=== PATIENT | female | born 1995 | race Caucasian/White ===

== ENCOUNTER → 2017-03-04 | Outpatient (CLI) | payer MEDICAID, OTHER ==
[~2017-03-04] MED LIST: ACHD5005 PO; ALPR0.25 PO; BCP; IBUP-16 PO; METF1000 PO; SERT50TA2 PO
--- NOTE | 2017-03-04 11:59 | Diagnostic Imaging Report ---
PROCEDURE: US OB SINGLE FETUS <14 WKS. TECHNIQUE: Multiple Real-time grayscale images were obtained over the gravid uterus in various projections. INDICATION: Dating. COMPARISON: No recent examinations are available for comparison. FINDINGS: There is a gestational sac within the uterus containing a single live embryo. Embryonic heart motion is noted and a rate of 135 BPM was recorded. The crown/rump length suggests the estimated gestational age is 7 weeks 1 day plus/minus 1/2 week. There are no obvious embryonic abnormalities identified. The amniotic fluid volume is within normal limits. At this time, it is not certain where the placenta will develop. The ovaries are not identified. There is no pelvic mass or free fluid collection noted. IMPRESSION: 1. There is a gestational sac within the uterus containing a single live embryo of approximately 7 weeks 1 day gestation plus/minus 1/2 week. The EDC is 10/20/2017. 2. There are no obvious embryonic abnormalities identified. 3. If a more sensitive evaluation of the anatomy is desired, then a short-term (12-14 week) followup OB ultrasound exam should be obtained. Dictated by: Dictated on workstation # [id number]
== END ==
LOC: RAD 10:05
PROVIDERS: ATTEND Family Medicine
DX: Z36.89 Encounter for other specified antenatal screening (principal); Z3A.01 Less than 8 weeks gestation of pregnancy
CPT/HCPCS: 76801

== ENCOUNTER → 2017-03-31 | Outpatient (CLI) | payer MEDICAID ==
--- NOTE | 2017-03-31 11:51 | Diagnostic Imaging Report ---
PROCEDURE: US OB SINGLE FETUS <14 WKS. TECHNIQUE: Multiple real-time grayscale images were obtained over the gravid uterus in various projections. INDICATION: Vaginal bleeding and threatened . FINDINGS: There is a somewhat misshapen gestational sac with the pole measuring 1.36 cm. This correlates with gestational age of 7 weeks 5 days. There are however no detectable heart tones. There are no adnexal masses. There is no free pelvic fluid. IMPRESSION: Findings compatible with intrauterine demise. Dictated on workstation # [id number]
== END ==
LOC: RAD 09:57
PROVIDERS: ATTEND Family Medicine
DX: O20.0 Threatened abortion (principal)
CPT/HCPCS: 76801

== ENCOUNTER 2017-04-30 22:50 | Emergency (ER) | payer MEDICAID ==
[~2017-04-30] VITALS: Ht 170.2 cm; Wt 65.8 kg
--- OUTSIDE RECORDS SUMMARY | 2017-04-30 22:55 | XMS REPORT | Continuity of Care Document ---
Author Author [employer] Organization [facility] Address Unknown Phone Unavailable Care Team Providers Care Flatwork Finisher Name Role Phone [employer] Unavailable Unavailable Problems Medications Allergies, Adverse Reactions, Alerts Immunizations Results Vital Signs Encounters Location Location Details Encounter Type Encounter Number Reason For Visit Attending Provider ADM Date DC Date Status Source OUTPATIENT [id number] JUSTICE VARGAS 05/12/20132013 Active [facility] Procedures Plan of Care Social History Assessment and Plan Family History Advance Directives Functional Status
--- OUTSIDE RECORDS SUMMARY | 2017-04-30 22:55 | XMS REPORT | Clinical Summary ---
Author Author [facility] Organization [facility] Address Unknown Phone Unavailable Care Team Providers Care Fabric Worker Foreman Name Role Phone Vickie Reyes MD Unavailable Unavailable Phong Osorio MD Unavailable José Miguel Blue MD PCP Valerio Bernardo MD Unavailable Glenna Menezes Unavailable Source Comments Some departments are not documenting in the electronic medical record. If you do not see the information that you expected, contact Release of Information in the Health Information Management department at [phone] for further assistance in locating additional records.[facility] Allergies Active Allergy Reactions Severity Noted Date Comments Penicillin G SWOLLEN TONGUE, EDEMA 12/25/2011 Penicillin class Current Medications Prescription Sig. Disp. Refills Start End Date Status Date norgestimate-ethinyl Take 1 Tab by mouth 84 Tab 3 05/07/19 Active estradiol(+) (ORTHO daily. 13 TRI-[id number]; RHRIPXNQ21; [id number]; [id number]) tabletIndications: PCOS (polycystic ovarian syndrome) metFORMIN-XR(+) Take 4 Tabs by mouth 90 Tab 11 05/07/19 Active (GLUCOPHAGE XR) 500 mg daily with dinner. All 13 tabletIndications: PCOS meds after dinner. (polycystic ovarian syndrome) spironolactone Take 1 Tab by mouth 90 Tab 3 08/06/19 Active (ALDACTONE) 50 mg daily. 13 tabletIndications: HTN (hypertension) ERGOCALCIFEROL (VITAMIN Take by mouth daily. Active D2) (VITAMIN D PO) OMEPRAZOLE (PRILOSEC PO) Take 40 mg by mouth Active daily. Active Problems Problem Noted Date Hypermobility syndrome 05/12/2013 Obesity 11/06/2012 Chronic headaches 11/06/2012 Overview: Likely related to migraine, defer to PCP. Anxiety 11/06/2012 Overview: For 4 years. H/o panic attacks (x3) 3 years ago. Dizziness 11/06/2012 Overview: For 1 year. Palpitations 11/04/2012 Vitamin D deficiency 08/05/2012 Overview: 12/25/11: level was 19.8; only took supplement for 2 months of 2,000 IU PCOS (polycystic ovarian syndrome) 05/06/2012 Overview: History of hirsutism, weight gain, irregular period, and fatigue. Currently on Metformin, OCP (04/2012), started on spirolactone (07/2012). HTN (hypertension) 12/25/2011 Overview: Currently being followed by Dr. Murphy; referral placed. Family History Medical History Relation Name Comments Arthritis Maternal Grandmother Asthma Maternal Grandmother Fibromyalgia Maternal Grandmother High Cholesterol Maternal Grandmother Diabetes Mother Hypertension Mother Urolithiasis Mother Diabetes Other Maternal great grand father. Heart Disease Other Maternal great grand parents. Hypertension Other Both maternal and paternal great grand parents. Cancer Paternal Grandmother Hypoglycemia Paternal Grandmother Relation Name Status Comments Maternal Grandmother Mother Other Paternal Grandmother Social History Tobacco Use Types Packs/Day Years Used Date Never Smoker Smokeless Tobacco: Never Used Alcohol Use Drinks/Week oz/Week Comments No Sex Assigned at Date Recorded Not on file Last Filed Vital Signs Vital Sign Reading Time Taken Blood Pressure 122/79 05/12/2013 1:18 PM CDT Pulse 92 05/12/2013 1:18 PM CDT Temperature 36.6 C (97.9 F) 05/12/2013 1:18 PM CDT Respiratory Rate 20 05/12/2013 1:18 PM CDT Oxygen Saturation - - Inhaled Oxygen - - Concentration Weight 84.4 kg (186 lb) 05/12/2013 1:18 PM CDT Height 171 cm (5' 7.32") 05/12/2013 1:18 PM CDT Body Mass Index 28.85 05/12/2013 1:18 PM CDT Plan of Treatment Health Maintenance Due Date Last Done Comments PHYSICAL (COMPREHENSIVE) 2001 EXAM HPV VACCINES (1 of 3 - 2005 Female 3 Dose Series) PERTUSSIS VACCINE 2005 HIV SCREENING 2009 TETANUS VACCINE 07/17/2011 CERVICAL CANCER SCREENING 07/17/2015 INFLUENZA VACCINE 11/16/2017 Results Not on filefrom Last 3 Months
--- OUTSIDE RECORDS SUMMARY | 2017-04-30 22:56 | XMS REPORT | Continuity of Care Document ---
Author Author [facility] Organization [facility] Address Unknown Phone Unavailable Allergies Active Description Code Type Severity Reaction Onset Reported/Identified Relationship to Patient Clinical Status Yes PENICILLIN PENICILLIN Unknown N/A 12/05/2011 Medications There is no data. Problems Date Dx Coded Attending Type Code Diagnosis Diagnosed By 12/21/2014 Ot 530.81 12/21/2014 Ot 790.6 12/21/2014 Ot 255.8 12/21/2014 Ot 704.1 12/21/2014 Ot 401.9 12/21/2014 Ot 704.1 12/21/2014 RODERICK HENRY MD Ot 401.9 12/21/2014 RODERICK HENRY MD Ot 785.1 12/21/2014 Ot 530.81 12/21/2014 Ot 790.6 12/21/2014 Ot 255.8 12/21/2014 Ot 704.1 12/21/2014 Ot 401.9 12/21/2014 Ot 704.1 12/21/2014 RODERICK HENRY MD Ot 401.9 12/21/2014 RODERICK HENRY MD Ot 785.1 12/22/2014 Ot 530.81 12/22/2014 Ot 790.6 12/22/2014 Ot 255.8 12/22/2014 Ot 704.1 12/22/2014 Ot 401.9 12/22/2014 Ot 704.1 12/22/2014 RODERICK HENRY MD Ot 401.9 12/22/2014 RODERICK HENRY MD Ot 785.1 12/22/2014 ROBIN CUNNINGHAM DO Ot K66.1 12/22/2014 ROBIN CUNNINGHAM DO Ot N83.20 03/03/2017 Ot 790.6 ABN BLOOD CHEMISTRY NEC 03/03/2017 Ot 255.8 ADRENAL DISORDER NEC 03/03/2017 Ot 704.1 HIRSUTISM 03/03/2017 Ot 401.9 HYPERTENSION NOS 03/03/2017 Ot 704.1 HIRSUTISM 03/03/2017 RODERICK HENRY MD Ot 401.9 HYPERTENSION NOS 03/03/2017 RODERICK HENRY MD Ot 785.1 PALPITATIONS 03/04/2017 Ot 790.6 ABN BLOOD CHEMISTRY NEC 03/04/2017 Ot 255.8 ADRENAL DISORDER NEC 03/04/2017 Ot 704.1 HIRSUTISM 03/04/2017 Ot 401.9 HYPERTENSION NOS 03/04/2017 Ot 704.1 HIRSUTISM 03/04/2017 RODERICK HENRY MD Ot 401.9 HYPERTENSION NOS 03/04/2017 RODERICK HENRY MD Ot 785.1 PALPITATIONS 03/05/2017 CHASE AMEZQUITA MD Ot Z36.89 ENCOUNTER FOR OTHER SPECIFIED 03/05/2017 CHASE AMEZQUITA MD Ot Z3A.01 LESS THAN 8 WEEKS GESTATION OF 03/17/2017 CHASE AMEZQUITA MD Ot Z36.89 ENCOUNTER FOR OTHER SPECIFIED 03/17/2017 CHASE AMEZQUITA MD Ot Z3A.01 LESS THAN 8 WEEKS GESTATION OF 03/31/2017 Ot 790.6 ABN BLOOD CHEMISTRY NEC 03/31/2017 Ot 255.8 ADRENAL DISORDER NEC 03/31/2017 Ot 704.1 HIRSUTISM 03/31/2017 Ot 401.9 HYPERTENSION NOS 03/31/2017 Ot 704.1 HIRSUTISM 03/31/2017 RODERICK HENRY MD Ot 401.9 HYPERTENSION NOS 03/31/2017 RODERICK HENRY MD Ot 785.1 PALPITATIONS 03/31/2017 CHASE AMEZQUITA MD Ot Z36.89 ENCOUNTER FOR OTHER SPECIFIED 03/31/2017 CHASE AMEZQUITA MD Ot Z3A.01 LESS THAN 8 WEEKS GESTATION OF 04/01/2017 CHASE AMEZQUITA MD Ot O20.0 THREATENED 04/01/2017 CHASE AMEZQUITA MD Ot O20.0 THREATENED 04/14/2017 CHASE AMEZQUITA MD Ot O20.0 THREATENED Procedures There is no data. Results There is no data. Encounters ACCT No. Visit Date/Time Discharge Status Pt. Type Provider Facility Loc./Unit Complaint [id number] 03/31/2017 09:57:00 03/31/2017 23:59:59 CLS Outpatient CHASE AMEZQUITA MD [facility] RAD O20.0 THREATENED MISCARRIAGE [id number] 03/04/2017 10:05:00 03/04/2017 23:59:59 CLS Outpatient CHASE AMEZQUITA MD [facility] RAD Z34.00 NORMAL [id number] 12/21/2014 17:01:00 12/22/2014 15:10:00 DIS Outpatient ROBIN CUNNINGHAM DO [facility] SDC [id number] 08/06/2012 12:31:00 08/06/2012 23:59:59 CLS Outpatient RODERICK HENRY MD [facility] CARD PALPITATIONS [id number] 04/30/2017 22:51:00 ACT Emergency MYRTLE MONTIEL MD [facility] ER VAGINAL BLEEDING [id number] 12/28/2011 12:19:00 Document Registration [id number] 12/05/2011 07:42:00 Document Registration [id number] 12/04/2011 12:47:00 Document Registration [id number] 05/27/2010 07:35:00 Document Registration
[2017-04-30 23:14] LABS: BASOPHILS # (AUTO) 0.1 10^3/uL (0.0-0.1); BASOPHILS % (AUTO) 1 % (0-10); EOSINOPHILS # (AUTO) 0.2 10^3/uL (0.0-0.3); EOSINOPHILS % (AUTO) 2 % (0-10); HEMATOCRIT 35 % (35-52); HEMOGLOBIN 12.1 G/DL (11.5-16.0); LYMPHOCYTES # (AUTO) 2.9 X 10^3 (1.0-4.0); LYMPHOCYTES % (AUTO) 29 % (12-44); MEAN CORPUSCULAR HEMOGLOBIN 31 PG (25-34); MEAN CORPUSCULAR HGB CONC 34 G/DL (32-36); MEAN CORPUSCULAR VOLUME 90 FL (80-99); MEAN PLATELET VOLUME 12.7 FL (7.4-10.4); MONOCYTES # (AUTO) 0.7 X 10^3 (0.0-1.0); MONOCYTES % (AUTO) 7 % (0-12); NEUTROPHILS # (AUTO) 6.3 X 10^3 (1.8-7.8); NEUTROPHILS % (AUTO) 62 % (42-75); PLATELET COUNT 175 10^3/uL (130-400); RED BLOOD COUNT 3.93 10^6/uL (4.35-5.85); WHITE BLOOD COUNT 10.1 10^3/uL (4.3-11.0)
[2017-04-30] MEDS ORDERED: NS IV 1000 ML 1,000 ML IV SCH (23:39)
[2017-05-01 00:06] LABS: BUN/CREATININE RATIO 11; CALCIUM 9.4 MG/DL (8.5-10.1); CARBON DIOXIDE 23 MMOL/L (21-32); CHLORIDE 106 MMOL/L (98-107); CREATININE SERUM 0.81 MG/DL (0.60-1.30); GFR ESTIMATED > 60; GLUCOSE 98 MG/DL (70-105); POTASSIUM 3.4 MMOL/L (3.6-5.0); SODIUM 139 MMOL/L (135-145)
[2017-05-01] MEDS ORDERED: MISOPROSTOL 100 MCG (CYTOTEC) TAB ONE (02:21)
[2017-05-01] MEDS ORDERED: MISOPROSTOL 100 MCG (CYTOTEC) TAB PO ONE (02:30)
--- NOTE | 2017-05-01 02:31 | ED GU-Female ---
General Chief Complaint: -Female Stated Complaint: VAGINAL BLEEDING Nursing Triage Note: PT TO ED 9 W/ C/O HEAVY VAGINAL BLEEDING ONSET LAST NOC, WORSE THIS EVENING. REPORTS SHE HAD A MISCARRIAGE X3WKS AGO, "TOOK THE MEDICINE", DENIES D&C. STATES SHE HAD BLEEDING AFTER BUT NOT LIKE HER PRESENT C/O. Nursing Sepsis Screen: No Definite Risk Source: patient Exam Limitations: no limitations History of Present Illness Date Seen by Provider: Apr 30, 2017 Time Seen by Provider: 23:08 Initial Comments This 21-year-old young lady presents to the emergency room with persistent bleeding after having a miscarriage. She was diagnosed with demise on March 31. She took a single dose of Cytotec vaginally and passed a large amount of clot afterwards. She has continued to bleed almost every day since then, taking a break from bleeding for only 1 or 2 days during that time. Tonight her bleeding became more intense and she developed lightheadedness upon standing. She is noted to be tachycardic as well. She is afebrile and denies any significant pain. She had a little bit of cramping earlier when the bleeding was heavier. Allergies and Home Medications Allergies Uncoded Allergies: PENICILLIN (Allergy, Unknown, 12/05/11) Home Medications Alprazolam 0.25 Mg Tablet, 0.25 MG PO NEEDED, (Reported) Hydrocodone Bit/Acetaminophen 1 Each Tablet, 1 TAB PO Q4H PRN for pain Prescribed by: ROBIN CUNNINGHAM on 12/22/14 1141 Ibuprofen 200 Mg Tablet, 600 MG PO Q6H PRN for PAIN Prescribed by: ROBIN CUNNINGHAM on 12/22/14 1141 Metformin HCl 1,000 Mg Tablet, 2,000 MG PO DAILY, (Reported) Misoprostol 200 Mcg Tablet, 400 MCG PO Q4H Repeat doses every 4 hours until resolution of bleeding Prescribed by: MYRTLE CRUZ on 05/01/17 0232 Sertraline HCl 50 Mg Tablet, 50 MG PO DAILY, (Reported) [Bcp] , DAILY, (Reported) Patient Home Medication List Home Medication List Reviewed: Yes Constitutional: no symptoms reported EENTM: no symptoms reported Respiratory: no symptoms reported Cardiovascular: see HPI Gastrointestinal: no symptoms reported Genitourinary: see HPI : No Musculoskeletal: no symptoms reported Skin: no symptoms reported Psychiatric/Neurological: No Symptoms Reported Endocrine: No Symptoms Reported Past Qslikcp-Ndkknp-Tirsju Hx Patient Social History Alcohol Use: Occasionally Uses Recreational Drug Use: Yes (MARIJUANA X1WK AGO) Smoking Status: Current Everyday Smoker Type Used: Cigarettes Recent Foreign Travel: No Contact w/Someone Who Travel: No Recent Infectious Disease Expo: No Physical Abuse: No Sexual Abuse: No Mistreated: No Fear: No Surgeries History of Surgeries: Yes (UMBIL HERNIA) Surgeries: Abdominal, Orthopedic (right shoulder labral repair) Respiratory History of Respiratory Disorde: No Cardiovascular History of Cardiac Disorders: No Neurological History of Neurological Disord: No Reproductive System : No Hx : 1 Hx Para: 0 Hx Total # of Abortions (Spona: 1 Hx Reproductive Disorders: Yes Female Reproductive Disorders: Polycystic Ovarian Dis Genitourinary History of Genitourinary Disor: No Gastrointestinal History of Gastrointestinal Di: No Musculoskeletal History of Musculoskeletal Dis: No Endocrine History of Endocrine Disorders: No HEENT History of HEENT Disorders: No Cancer History of Cancer: No Psychosocial History of Psychiatric Problem: Yes Behavioral Health Disorders: Anxiety, Depression Suicide Risk Score: 0 Integumentary History of Skin or Integumenta: No Blood Transfusions History of Blood Disorders: No Family Medical History Significant Family History: No Pertinent Family Hx Physical Exam Vital Signs Vital Signs - First Documented 04/30/17 22:53 Temp 97.7 Pulse 116 Resp 20 B/P (MAP) 129/88 (102) Pulse Ox 99 O2 Delivery Room Air Capillary Refill : Less Than 3 Seconds General Appearance: WD/WN, no apparent distress HEENT: normal ENT inspection Cardiovascular: no edema, no murmur, tachycardia Respiratory: lungs clear, normal breath sounds, no respiratory distress, no accessory muscle use Gastrointestinal: normal bowel sounds, non tender, soft Extremities: normal inspection, no pedal edema Neurologic/Psychiatric: 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-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 as tested, no motor/sensory deficits, alert, normal mood/affect, oriented x 3 Skin: normal color, warm/dry Progress/Results/Core Measures Suspected Sepsis Recent Fever Within 48 Hours: No Infection Criteria Present: None New/Unexplained Altered Menta: No Sepsis Screen: No Definite Risk Sepsis Diagnosis: SIRS Temperature:97.7 Pulse: 116 Respiratory Rate: 20 Laboratory Tests 04/30/17 23:07: White Blood Count 10.1 Blood Pressure 129 /88 Mean: 102 Laboratory Tests 04/30/17 23:07: Creatinine 0.81, Platelet Count 175 Results/Orders Lab Results Laboratory Tests Test 04/30/17 23:07 Range/Units White Blood Count 10.1 4.3-11.0 10^3/uL Red Blood Count 3.93 L 4.35-5.85 10^6/uL Hemoglobin 12.1 11.5-16.0 G/DL Hematocrit 35 35-52 % Mean Corpuscular Volume 90 80-99 FL Mean Corpuscular Hemoglobin 31 25-34 PG Mean Corpuscular Hemoglobin Concent 34 32-36 G/DL Red Cell Distribution Width 14.0 10.0-14.5 % Platelet Count 175 130-400 10^3/uL Mean Platelet Volume 12.7 H 7.4-10.4 FL Neutrophils (%) (Auto) 62 42-75 % Lymphocytes (%) (Auto) 29 12-44 % Monocytes (%) (Auto) 7 0-12 % Eosinophils (%) (Auto) 2 0-10 % Basophils (%) (Auto) 1 0-10 % Neutrophils # (Auto) 6.3 1.8-7.8 X 10^3 Lymphocytes # (Auto) 2.9 1.0-4.0 X 10^3 Monocytes # (Auto) 0.7 0.0-1.0 X 10^3 Eosinophils # (Auto) 0.2 0.0-0.3 10^3/uL Basophils # (Auto) 0.1 0.0-0.1 10^3/uL Sodium Level 139 135-145 MMOL/L Potassium Level 3.4 L 3.6-5.0 MMOL/L Chloride Level 106 98-107 MMOL/L Carbon Dioxide Level 23 21-32 MMOL/L Anion Gap 10 5-14 MMOL/L Blood Urea Nitrogen 9 7-18 MG/DL Creatinine 0.81 0.60-1.30 MG/DL Estimat Glomerular Filtration Rate > 60 BUN/Creatinine Ratio 11 Glucose Level 98 70-105 MG/DL Calcium Level 9.4 8.5-10.1 MG/DL Human Chorionic Gonadotropin, Quant 116 H <5 MIU/ML My Orders Orders - MYRTLE MONTIEL MD Cbc With Automated Diff (04/30/17 23:08) Hcg,Quantitative (04/30/17 23:08) Saline Lock/Iv-Start (04/30/17 23:39) Ns Iv 1000 Ml (Sodium Chloride 0.9%) (04/30/17 23:39) Basic Metabolic Panel (04/30/17 23:43) Us Ob Transvaginal 78827 (05/01/17 ) Misoprostol Tablet (Cytotec Tablet) (05/01/17 02:30) Misoprostol Tablet (Cytotec Tablet) (05/01/17 02:21) Medications Given in ED Current Medications Medications Dose Ordered Sig/Maura Route Start Time Stop Time Status Last Admin Dose Admin Misoprostol 400 mcg ONCE ONCE PO 05/01/17 02:30 05/01/17 02:32 DC 05/01/17 02:30 400 MCG Vital Signs/I&O Vital Sign - Last 12Hours 04/30/17 22:53 Temp 97.7 Pulse 116 Resp 20 B/P (MAP) 129/88 (102) Pulse Ox 99 O2 Delivery Room Air Capillary Refill : Less Than 3 Seconds Blood Pressure Mean: 102 Progress Note : Progress Note Patient received a liter of IV fluid. Dizziness resolved. Labs were reviewed and patient was found to have a normal hemoglobin. There is no leukocytosis. Ultrasound revealed heterogeneous debris and fluid within the endometrial no. Consider retained products of conception and/or blood products. There was also 4.8 cm right ovarian cyst. Recommendation is for follow-up in 6-8 weeks. Patient had minimal hCG detectable. After discussion with Dr. Cobb, Dr. CUNNINGHAM , and patient, a conservative approach was selected with serial treatments of Cytotec 400 g every 4 hours up to 4 doses until resolution. If symptoms worsen or Cytotec does not resolve the problem, then D&C may be necessary. Patient reported little bleeding during her ER stay. The first dose of Cytotec was administered in the ER. Departure Impression Impression: Primary Impression: Retained products of conception Disposition: HOME, SELF-CARE Condition: Improved Departure-Patient Inst. Decision time for Depature: 02:15 Referrals: CHASE AMEZQUITA MD (PCP/Family) Primary Care Physician Patient Instructions: Miscarriage Add. Discharge Instructions: Drink plenty of clear liquids. Use your medication as prescribed. Return to care if symptoms are worsening. You may take Tylenol up to 1000 mg every 6 hours as needed for pain. Schedule follow-up appointment with Dr. Amezquita for Thursday. Contact Dr. Amezquita's staff at [facility] this afternoon to provide an update. If your symptoms become severe, contact Dr. Amezquita or present back to the emergency room. D&C may become necessary at that point. All discharge instructions reviewed with patient and/or family. Voiced understanding. Scripts Misoprostol (Cytotec) 200 Mcg Tablet 400 MCG PO Q4H, #8 TAB Repeat doses every 4 hours until resolution of bleeding Prov: MYRTLE MONTIEL MD 05/01/17 Copy Copies To 1: CHASE AMEZQUITA MD Copies To 2: ROBIN CUNNINGHAM JOSHUA T MD May 01, 2017 02:31
[2017-05-01] MEDS ORDERED: MISO200T PO (02:32)
[2017-05-01 02:35] VITALS: BP 107/89
--- NOTE | 2017-05-01 07:14 | Diagnostic Imaging Report ---
INDICATION: Slightly elevated serum beta-hCG. Recent miscarriage one month ago. Continued heavy bleeding. TECHNIQUE: Multiple real time casey scale sonographic images were obtained of the pelvis endovaginally. CORRELATION STUDY: None FINDINGS: UTERUS/ENDOMETRIUM: Uterus measures 7.7 x 4.5 x 5.9 cm. Endometrial thickness is 14 mm. There is heterogeneous appearance about the endometrium with what appears be debris and fluid within a mildly dilated endometrial canal. No definitive evidence for internal vascularity upon color Doppler interrogation. RIGHT OVARY: 5.5 x 4.8 cm. LEFT OVARY: 3.6 x 1.6 x 1.2 cm. 4.8 x 3.5 x 4.5 cm hypoechoic mass of the right ovary with a few internal echoes are present. Vascular flow is demonstrated to both ovaries. No significant free pelvic fluid. IMPRESSION: 1. Heterogeneous, debris and fluid within the endometrial canal. No definitive vascularity is present. However, given the overall symptoms, possibly retained products of conception and/or blood products or could give this appearance. 2. Nearly 5 cm right ovarian cyst slightly complex with perhaps some debris. Continued repeat imaging after approximately to 2 to 3 menstrual cycles would be recommended for followup. Agreement with the preliminary interpretation. Dictated by: Dictated on workstation # [id number]
== END 2017-05-01 02:35 | disposition home or self-care (01) ==
LOC: EDUNIT# 22:50 → ER 22:51
DX: O73.1 Retained portions of placenta and membranes, without hemorrhage (principal); F41.9 Anxiety disorder, unspecified; F32.9 Major depressive disorder, single episode, unspecified; F12.90 Cannabis use, unspecified, uncomplicated; F17.210 Nicotine dependence, cigarettes, uncomplicated; Z87.42 Personal history of other diseases of the female genital tract; Z87.19 Personal history of other diseases of the digestive system; Z79.84 Long term (current) use of oral hypoglycemic drugs; Z88.0 Allergy status to penicillin
CPT/HCPCS: 36415; 76817; 80048; 84702; 85025; 96360

== ENCOUNTER → 2019-02-04 | Day surgery (SDC) | payer SELFPAY ==
[2019-02-04] VITALS (7 sets, daily range): BP systolic 92–116; BP diastolic 53–68
[~2019-02-04] VITALS: Ht 170 cm; Wt 68.0 kg
[~2019-02-04] MED LIST changes: +CEFD300C3 PO; +CLIN300C11 PO; +CLINDAMYCIN 900 MG/50 ML IVPB 50 ML IV ONE; +DEXAMETHASONE 10 MG/ML (DECADRON) 1 ML VIAL ONE; +DOXY100T2 PO; +DOXYCYCLINE 100 MG (VIBRAMYCIN) TABLET PO SCH; +FERR325T18 PO; +FERROUS SULF 325 MG (IRON) TAB PO SCH; +HYDROmorphone 2 MG/ML VIAL (DILAUDID) IV ONE; +HYDROmorphone 2 MG/ML VIAL (DILAUDID) ONE; +IBUP-1780 PO; +IBUP-30 PO; +IBUPROFEN 800 MG (MOTRIN) TAB PO SCH; +KETOROLAC 30 MG/ML VIAL IVP ONE; +KETOROLAC 30 MG/ML VIAL ONE; +LIDOCAINE PF 2% 5 ML (XYLOCAINE) VIAL ONE; +METF-399 PO; -METF1000 PO; +METHYLERGONOVINE 0.2 MG/ML (METHERGINE) AMP ONE; +MIDAZOLAM 2 MG/2 ML (VERSED) VIAL ONE; +MISO200T PO; +MISOPROSTOL 100 MCG (CYTOTEC) TAB PO SCH; +NS IV 1000 ML 1,000 ML IV ONE; +NS IV 500 ML 500 ML IV SCH; +ONDANSETRON 4 MG/2 ML (SDV) Z0FRAN IVP PRN; +ONDANSETRON 4 MG/2 ML (SDV) Z0FRAN ONE; +OXYC1TAB87 PO; +OXYTOCIN (PITOCIN) 10 UNIT/ML VIAL ONE; +SEVOFLURANE (ULTANE) 15 ML INHAL SOLN ONE; +[UNRECOGNIZED DRUG - CODE] PO; +fentaNYL INJECTION 100 MCG/2 ML AMP IVP PRN; +fentaNYL INJECTION 100 MCG/2 ML AMP ONE; +oxyCODONE/APAP 5/325MG (PERCOCET 5) TABLET PO PRN; +proPOfol 200 MG/20 ML (DIPRIVAN) VIAL IV ONE
--- NOTE | 2019-02-04 16:13 | NUR ---
pt changed into gown
[2019-02-04 16:20] LABS: BASOPHILS % (AUTO) 1 % (0-10); EOSINOPHILS # (AUTO) 0.1 10^3/uL (0.0-0.3); EOSINOPHILS % (AUTO) 2 % (0-10); HEMATOCRIT 23 % (35-52); HEMOGLOBIN 7.1 G/DL (11.5-16.0); LYMPHOCYTES # (AUTO) 1.2 X 10^3 (1.0-4.0); LYMPHOCYTES % (AUTO) 28 % (12-44); MEAN CORPUSCULAR HEMOGLOBIN 25 PG (25-34); MEAN CORPUSCULAR HGB CONC 31 G/DL (32-36); MEAN CORPUSCULAR VOLUME 80 FL (80-99); MEAN PLATELET VOLUME 11.5 FL (7.4-10.4); MONOCYTES # (AUTO) 0.5 X 10^3 (0.0-1.0); MONOCYTES % (AUTO) 12 % (0-12); NEUTROPHILS # (AUTO) 2.4 X 10^3 (1.8-7.8); NEUTROPHILS % (AUTO) 57 % (42-75); PLATELET COUNT 322 10^3/uL (130-400); RED CELL DISTRIBUTION WIDTH 16.1 % (10.0-14.5); WHITE BLOOD COUNT 4.2 10^3/uL (4.3-11.0)
[2019-02-04 16:33] LABS: ALANINE AMINOTRANSFERASE 14 U/L (0-55); ALBUMIN 4.8 GM/DL (3.2-4.5); ALKALINE PHOSPHATASE 42 U/L (40-136); BILIRUBIN,TOTAL 0.5 MG/DL (0.1-1.0); BUN/CREATININE RATIO 15; CALCIUM 9.2 MG/DL (8.5-10.1); CARBON DIOXIDE 22 MMOL/L (21-32); CHLORIDE 107 MMOL/L (98-107); CREATININE SERUM 0.66 MG/DL (0.60-1.30); GFR ESTIMATED > 60; GLUCOSE 105 MG/DL (70-105); POTASSIUM 3.7 MMOL/L (3.6-5.0); SODIUM 138 MMOL/L (135-145); TOTAL PROTEIN 7.6 GM/DL (6.4-8.2)
--- NOTE | 2019-02-04 17:26 | Diagnostic Imaging Report ---
INDICATION: Decreased hemoglobin, vaginal bleeding, recent elective six weeks ago, complains of bleeding since that intervention. FINDINGS: The endometrium is heterogeneous, thickened at 1.2 cm and shows abnormal color Doppler blood flow at its fundal aspect. Component of retained vascularized product of conception could not be excluded. The myometrium is grossly unremarkable. Small amount of free fluid adjacent to the right ovary is present. The right ovary containing a 4.2 cm complex cystic nodule without internal vascularity, likely a hemorrhagic cyst. The left adnexa appeared normal. There was no evidence for adnexal torsion. IMPRESSION: Heterogeneous, thickened endometrium vascularized at its fundal aspect, given the history, suspicious for a component of vascularized retained product. Complex right ovarian cyst of 4.2 cm, likely hemorrhagic but given its size, warranting follow up. No evidence for adnexal torsion. Small-volume simple free fluid. Dictated by: Dictated on workstation # [id number]
--- NOTE | 2019-02-04 17:32 | ED GU-Female ---
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 PT DOES REPORT SHE HAS BEEN SEXUALLY ACTIVE SINCE. PT REPORTS SHE WAS SENT TO THIS FACILITY FROM [facility] Nursing Sepsis Screen: No Definite Risk Source: patient, other (significant other) Exam Limitations: no limitations History of Present Illness Date Seen by Provider: Feb 04, 2019 Time Seen by Provider: 17:32 Initial Comments 23-year-old female patient presents from [facility] with complaints of vaginal bleeding for 6 weeks. Patient was found to have a hemoglobin of 7.2 and a positive test at [facility] today. Patient had an elective with Cytotec at 7 weeks gestation in [place], [place]. Patient does report being sexually active since the . Denies abdominal pain, fever, chills. Patient has not had solids since yesterday and last liquids at 1400 today. This is the patient's 2nd elective . Timing/Duration: constant, other (6 weeks) Severity/Quality: moderate Location: vaginal Radiation: none Activities at Onset: other (elective ) Prior Genitourinary Problems: none Sexual [place] History: less than 2 months ago, single partner Allergies and Home Medications Allergies Uncoded Allergies: PENICILLIN (Allergy, Unknown, 12/05/11) Home Medications Alprazolam 0.25 Mg Tablet, 0.25 MG PO NEEDED, (Reported) Hydrocodone Bit/Acetaminophen 1 Each Tablet, 1 TAB PO Q4H PRN for pain Prescribed by: ROBIN CUNNINGHAM on 12/22/14 1141 Ibuprofen 200 Mg Tablet, 600 MG PO Q6H PRN for PAIN Prescribed by: ROBIN CUNNINGHAM on 12/22/14 1141 Metformin HCl 1,000 Mg Tablet, 2,000 MG PO DAILY, (Reported) Misoprostol 200 Mcg Tablet, 400 MCG PO Q4H Repeat doses every 4 hours until resolution of bleeding Prescribed by: MYRTLE CRUZ on 05/01/17 0232 Sertraline HCl 50 Mg Tablet, 50 MG PO DAILY, (Reported) [Bcp] , DAILY, (Reported) Patient Home Medication List Home Medication List Reviewed: Yes Review of Systems Review of Systems Constitutional: No chills, No fever, No malaise, No weakness; other (fatigue) EENTM: no symptoms reported Respiratory: No cough, No orthopnea, No short of breath, No wheezing Cardiovascular: No chest pain, No palpitations, No syncope Gastrointestinal: No abdominal pain, No constipation, No diarrhea, No jaundice; loss of appetite; No melena, No nausea, No vomiting Genitourinary: see HPI; denies dysuria, denies frequency, denies flank pain, denies hematuria, denies pain; other (vaginal bleeding) Musculoskeletal: No back pain Skin: no symptoms reported Psychiatric/Neurological: No Symptoms Reported Hematologic/Lymphatic: No Symptoms Reported All Other Systemes Reviewed Negative Unless Noted: Yes (Negative excepted noted.) Past Mzdnwjq-Qajlia-Yikbky Hx Past Med/Social Hx: Reviewed Nursing Past Med/Soc Hx Patient Social History Alcohol Use: Occasionally Uses Recreational Drug Use: Yes Drug of Choice: MARIJUANA Smoking Status: Current Everyday Smoker Type Used: Electronic/Vapor Recent Foreign Travel: No Contact w/Someone Who Travel: No Recent Infectious Disease Expo: No Past Medical History Surgeries: Yes (UMBIL HERNIA) Abdominal, Orthopedic Respiratory: No Cardiac: No Neurological: No Hx : 2 Hx Para: 0 Hx Total # of Abortions (Sp): 2 (elective abortions) Reproductive Disorders: Yes Female Reproductive Disorders: Polycystic Ovarian Dis Genitourinary: No Gastrointestinal: No Musculoskeletal: No Endocrine: No HEENT: No Cancer: No Psychosocial: Yes Anxiety, Depression Integumentary: No Blood Disorders: No Family Medical History Reviewed Nursing Family Hx No Pertinent Family Hx Physical Exam Vital Signs Vital Signs - First Documented 02/04/19 16:07 Temp 36.4 Pulse 96 Resp 18 B/P (MAP) 131/91 (104) Pulse Ox 100 O2 Delivery Room Air Capillary Refill : Less Than 3 Seconds Height, Weight, BMI Height: 5'7.00" Weight: 145lbs. 0.0oz. [id number]; 23.00 BMI Method:Stated General Appearance: WD/WN, no apparent distress HEENT: PERRL/EOMI, pharynx normal Neck: supple, normal inspection Cardiovascular: normal peripheral pulses, regular rate, rhythm, no edema, no gallop, no murmur Respiratory: lungs clear, normal breath sounds, no respiratory distress, no accessory muscle use Gastrointestinal: normal bowel sounds, non tender, soft, no organomegaly; No distended Back: normal inspection Extremities: no pedal edema, normal capillary refill Neurologic/Psychiatric: alert, normal mood/affect, oriented x 3 Skin: warm/dry, pallor Progress/Results/Core Measures Suspected Sepsis Recent Fever Within 48 Hours: No Infection Criteria Present: None New/Unexplained Altered Menta: No Sepsis Screen: No Definite Risk SIRS Temperature: Pulse: 96 Respiratory Rate: 18 Laboratory Tests 02/04/19 16:05: White Blood Count 4.2L Blood Pressure 131 /91 Mean: 104 Laboratory Tests 02/04/19 16:05: Creatinine 0.66, Platelet Count 322, Total Bilirubin 0.5 Results/Orders Lab Results Laboratory Tests Test 02/04/19 16:05 02/04/19 17:25 Range/Units White Blood Count 4.2 L 4.3-11.0 10^3/uL Red Blood Count 2.89 L 4.35-5.85 10^6/uL Hemoglobin 7.1 L 11.5-16.0 G/DL Hematocrit 23 L 35-52 % Mean Corpuscular Volume 80 80-99 FL Mean Corpuscular Hemoglobin 25 25-34 PG Mean Corpuscular Hemoglobin Concent 31 L 32-36 G/DL Red Cell Distribution Width 16.1 H 10.0-14.5 % Platelet Count 322 130-400 10^3/uL Mean Platelet Volume 11.5 H 7.4-10.4 FL Neutrophils (%) (Auto) 57 42-75 % Lymphocytes (%) (Auto) 28 12-44 % Monocytes (%) (Auto) 12 0-12 % Eosinophils (%) (Auto) 2 0-10 % Basophils (%) (Auto) 1 0-10 % Neutrophils # (Auto) 2.4 1.8-7.8 X 10^3 Lymphocytes # (Auto) 1.2 1.0-4.0 X 10^3 Monocytes # (Auto) 0.5 0.0-1.0 X 10^3 Eosinophils # (Auto) 0.1 0.0-0.3 10^3/uL Basophils # (Auto) 0.0 0.0-0.1 10^3/uL Sodium Level 138 135-145 MMOL/L Potassium Level 3.7 3.6-5.0 MMOL/L Chloride Level 107 98-107 MMOL/L Carbon Dioxide Level 22 21-32 MMOL/L Anion Gap 9 5-14 MMOL/L Blood Urea Nitrogen 10 7-18 MG/DL Creatinine 0.66 0.60-1.30 MG/DL Estimat Glomerular Filtration Rate > 60 BUN/Creatinine Ratio 15 Glucose Level 105 70-105 MG/DL Calcium Level 9.2 8.5-10.1 MG/DL Corrected Calcium 8.5-10.1 MG/DL Total Bilirubin 0.5 0.1-1.0 MG/DL Aspartate Amino Transf (AST/SGOT) 16 5-34 U/L Alanine Aminotransferase (ALT/SGPT) 14 0-55 U/L Alkaline Phosphatase 42 40-136 U/L Total Protein 7.6 6.4-8.2 GM/DL Albumin 4.8 H 3.2-4.5 GM/DL Human Chorionic Gonadotropin, Quant 166 H <5 MIU/ML Urine Color YELLOW Urine Clarity CLEAR Urine pH 7.0 5-9 Urine Specific Burns 1.010 L 1.016-1.022 Urine Protein NEGATIVE NEGATIVE Urine Glucose (UA) NEGATIVE NEGATIVE Urine Ketones NEGATIVE NEGATIVE Urine Nitrite NEGATIVE NEGATIVE Urine Bilirubin NEGATIVE NEGATIVE Urine Urobilinogen 0.2 < = 1.0 MG/DL Urine Leukocyte Esterase TRACE NEGATIVE Urine RBC (Auto) 3+ H NEGATIVE Urine RBC NONE /HPF Urine WBC 5-10 H /HPF Urine Crystals NONE /LPF Urine Bacteria MODERATE H /HPF Urine Casts NONE /LPF Urine Mucus NEGATIVE /LPF Urine Culture Indicated YES My Orders Orders - ALEJANDRO REA Ed Iv/Invasive Line Start (02/04/19 16:10) Cbc With Automated Diff (02/04/19 16:10) Comprehensive Metabolic Panel (02/04/19 16:10) Ua Culture If Indicated (02/04/19 16:10) Type And Screen (02/04/19 16:10) Us Ob Transvaginal [id number] (02/04/19 16:10) Ns Iv 1000 Ml (Sodium Chloride 0.9%) (02/04/19 16:10) Hcg,Quantitative (02/04/19 16:54) Urine Culture (02/04/19 17:25) Medications Given in ED Current Medications Medications Dose Ordered Sig/Maura Route Start Time Stop Time Status Last Admin Dose Admin Sodium Chloride 1,000 ml @ 0 mls/hr Q0M ONCE IV 02/04/19 16:10 02/04/19 16:15 DC 02/04/19 17:46 1,000 MLS/HR Vital Signs/I&O 02/04/19 16:07 Temp 36.4 Pulse 96 Resp 18 B/P (MAP) 131/91 (104) Pulse Ox 100 O2 Delivery Room Air Capillary Refill : Less Than 3 Seconds Blood Pressure Mean: 104 Diagnostic Imaging Diagonstic Imaging: Ultrasound Plain Films/CT/US/NM/MRI: pelvis Comments Date of Exam:02/04/19 US OB TRANSVAGINAL [id number] INDICATION: Decreased hemoglobin, vaginal bleeding, recent elective six weeks ago, complains of bleeding since that intervention. FINDINGS: The endometrium is heterogeneous, thickened at 1.2 cm and shows abnormal color Doppler blood flow at its fundal aspect. Component of retained vascularized product of conception could not be excluded. The myometrium is grossly unremarkable. Small amount of free fluid adjacent to the right ovary is present. The right ovary containing a 4.2 cm complex cystic nodule without internal vascularity, likely a hemorrhagic cyst. The left adnexa appeared normal. There was no evidence for adnexal torsion. IMPRESSION: Heterogeneous, thickened endometrium vascularized at its fundal aspect, given the history, suspicious for a component of vascularized retained product. Complex right ovarian cyst of 4.2 cm, likely hemorrhagic but given its size, warranting follow up. No evidence for adnexal torsion. Small-volume simple free fluid. Dictated on workstation # [id number] Reviewed: Reviewed by Me (radiology report reviewed by me) Departure Communication (Admissions) Time/Spoke to Admitting Phy: 17:42 Dr. Georges graciously accepts patient for OR admit for D&C Patient seen and evaluated. Initial labs and ultrasound obtained showing retained products of conception. Findings discussed with the patient. 1755 Dr. Georges in ED to evaluate patient. plan for OR admit for D&C. patient verbalizes understanding and agrees with the treatment plan. Impression Primary Impression: Retained products of conception Additional Impression: Anemia due to blood loss Disposition: 09 ADMITTED INPATIENT Condition: Stable Admissions Decision to Admit Reason: Admit from ER (General) Decision to Admit/Date: Feb 04, 2019 Time/Decision to Admit Time: 17:42 Departure-Patient Inst. Referrals: [facility]/ (PCP) Primary Care Physician CHASE AMEZQUITA MD (Family) Primary Care Physician ALEJANDRO REA Feb 04, 2019 17:32
[2019-02-04 17:42] LABS: BILIRUBIN,URINE NEGATIVE (NEGATIVE); CLARITY,URINE CLEAR; COLOR,URINE YELLOW; GLUCOSE, URINE (UA) NEGATIVE (NEGATIVE); KETONES,URINE NEGATIVE (NEGATIVE); LEUKOCYTE ESTERASE ,URINE TRACE (NEGATIVE); NITRITE,URINE NEGATIVE (NEGATIVE); PROTEIN,URINE NEGATIVE (NEGATIVE)
--- NOTE | 2019-02-04 17:46 | NUR ---
MEDICAL ECONOMICS CONSULTANT NOTIFED OF DR SOTOMAYOR TAKING PT FOR D & C
[2019-02-04 18:00] LABS: BACTERIA,URINE MODERATE /HPF
--- NOTE | 2019-02-04 18:19 | ED Abdominal Pain ---
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 Chin presents to the Emergency Department secondary to bleeding and Pelvic Pain after having an Induced 6 weeks ago. She had a Pelvic Ultrasound which eluded to possible retained products of conception Stated Complaint: D&C Nursing Triage Note: PT TO ED W/ VAG BLEEDING ET ABD PAIN ONSET AFTER HAVING ELECTIVE AB X6 WKS AGO. PT DOES REPORT SHE HAS BEEN SEXUALLY ACTIVE SINCE. PT REPORTS SHE WAS SENT TO THIS FACILITY FROM [facility] Sepsis Screen: No Definite Risk Source of Information: Patient Exam Limitations: No Limitations History of Present Illness Date Seen by Provider: Feb 04, 2019 Time Seen by Provider: 18:00 Initial Comments Ms. Chin doesn't appear to be in acute distress, cooperative and pleasant Severity/Quality: Mild Location: Suprapubic Radiation: No Radiation Activities at Onset: None Allergies and Home Medications Allergies Uncoded Allergies: PENICILLIN (Allergy, Unknown, 12/05/11) Home Medications Alprazolam 0.25 Mg Tablet, 0.25 MG PO NEEDED, (Reported) Hydrocodone Bit/Acetaminophen 1 Each Tablet, 1 TAB PO Q4H PRN for pain Prescribed by: ROBIN CUNNINGHAM on 12/22/14 1141 Ibuprofen 200 Mg Tablet, 600 MG PO Q6H PRN for PAIN Prescribed by: ROBIN CUNNINGHAM on 12/22/14 1141 Metformin HCl 1,000 Mg Tablet, 2,000 MG PO DAILY, (Reported) Misoprostol 200 Mcg Tablet, 400 MCG PO Q4H Repeat doses every 4 hours until resolution of bleeding Prescribed by: MYRTLE CRUZ on 05/01/17 0232 Sertraline HCl 50 Mg Tablet, 50 MG PO DAILY, (Reported) [Bcp] , DAILY, (Reported) Patient Home Medication List Home Medication List Reviewed: Yes Review of Systems Review of Systems Constitutional: see HPI; No chills, No fever, No malaise, No weakness; other (fatigue) EENTM: No Symptoms Reported Respiratory: No Symptoms Reported Cardiovascular: No Symptoms Reported Musculoskeletal: No back pain Skin: no symptoms reported Psychiatric/Neurological: No Symptoms Reported Hematologic/Lymphatic: No Symptoms Reported Past [place]-Itktfz-Txlfar Hx Past Med/Social Hx: Reviewed Nursing Past Med/Soc Hx Patient Social History Alcohol Use: Occasionally Uses (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) Recreational Drug Use: Yes Drug of Choice: MARIJUANA Smoking Status: Current Everyday Smoker Type Used: Electronic/Vapor Recent Foreign Travel: No Contact w/Someone Who Travel: No Recent Infectious Disease Expo: No Past Medical History Surgeries: Yes (UMBIL HERNIA) Abdominal (Operative laparoscopy secondary to PCOS), Orthopedic (Right shoulder surgery) Respiratory: No Cardiac: No Neurological: No Hx : 2 Hx Para: 0 Hx Total # of Abortions (Sp): 2 (elective abortions) Reproductive Disorders: Yes Female Reproductive Disorders: Polycystic Ovarian Dis Genitourinary: No Gastrointestinal: No Musculoskeletal: No Endocrine: No HEENT: No Cancer: No Psychosocial: Yes Anxiety, Depression Integumentary: No Blood Disorders: No Family Medical History Reviewed Nursing Family Hx No Pertinent Family Hx Physical Exam Vital Signs Vital Signs - First Documented 02/04/19 16:07 Temp 36.4 Pulse 96 Resp 18 B/P (MAP) 131/91 (104) Pulse Ox 100 O2 Delivery Room Air Capillary Refill : Less Than 3 Seconds Height/Weight/BMI Height: 5'7.00" Weight: 145lbs. 0.0oz. 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, alert, oriented x 3 Skin: normal color, warm/dry Progress/Results/Core Measures Results/Orders Lab Results Laboratory Tests Test 02/04/19 16:05 02/04/19 17:25 Range/Units White Blood Count 4.2 L 4.3-11.0 10^3/uL Red Blood Count 2.89 L 4.35-5.85 10^6/uL Hemoglobin 7.1 L 11.5-16.0 G/DL Hematocrit 23 L 35-52 % Mean Corpuscular Volume 80 80-99 FL Mean Corpuscular Hemoglobin 25 25-34 PG Mean Corpuscular Hemoglobin Concent 31 L 32-36 G/DL Red Cell Distribution Width 16.1 H 10.0-14.5 % Platelet Count 322 130-400 10^3/uL Mean Platelet Volume 11.5 H 7.4-10.4 FL Neutrophils (%) (Auto) 57 42-75 % Lymphocytes (%) (Auto) 28 12-44 % Monocytes (%) (Auto) 12 0-12 % Eosinophils (%) (Auto) 2 0-10 % Basophils (%) (Auto) 1 0-10 % Neutrophils # (Auto) 2.4 1.8-7.8 X 10^3 Lymphocytes # (Auto) 1.2 1.0-4.0 X 10^3 Monocytes # (Auto) 0.5 0.0-1.0 X 10^3 Eosinophils # (Auto) 0.1 0.0-0.3 10^3/uL Basophils # (Auto) 0.0 0.0-0.1 10^3/uL Sodium Level 138 135-145 MMOL/L Potassium Level 3.7 3.6-5.0 MMOL/L Chloride Level 107 98-107 MMOL/L Carbon Dioxide Level 22 21-32 MMOL/L Anion Gap 9 5-14 MMOL/L Blood Urea Nitrogen 10 7-18 MG/DL Creatinine 0.66 0.60-1.30 MG/DL Estimat Glomerular Filtration Rate > 60 BUN/Creatinine Ratio 15 Glucose Level 105 70-105 MG/DL Calcium Level 9.2 8.5-10.1 MG/DL Corrected Calcium 8.5-10.1 MG/DL Total Bilirubin 0.5 0.1-1.0 MG/DL Aspartate Amino Transf (AST/SGOT) 16 5-34 U/L Alanine Aminotransferase (ALT/SGPT) 14 0-55 U/L Alkaline Phosphatase 42 40-136 U/L Total Protein 7.6 6.4-8.2 GM/DL Albumin 4.8 H 3.2-4.5 GM/DL Human Chorionic Gonadotropin, Quant 166 H <5 MIU/ML Urine Color YELLOW Urine Clarity CLEAR Urine pH 7.0 5-9 Urine Specific [place]da 1.010 L 1.016-1.022 Urine Protein NEGATIVE NEGATIVE Urine Glucose (UA) NEGATIVE NEGATIVE Urine Ketones NEGATIVE NEGATIVE Urine Nitrite NEGATIVE NEGATIVE Urine Bilirubin NEGATIVE NEGATIVE Urine Urobilinogen 0.2 < = 1.0 MG/DL Urine Leukocyte Esterase TRACE NEGATIVE Urine RBC (Auto) 3+ H NEGATIVE Urine RBC NONE /HPF Urine WBC 5-10 H /HPF Urine Crystals NONE /LPF Urine Bacteria MODERATE H /HPF Urine Casts NONE /LPF Urine Mucus NEGATIVE /LPF Urine Culture Indicated YES Medications Given in ED Current Medications Medications Dose Ordered Sig/Maura Route Start Time Stop Time Status Last Admin Dose Admin Sodium Chloride 1,000 ml @ 0 mls/hr Q0M ONCE IV 02/04/19 16:10 02/04/19 16:15 DC 02/04/19 17:46 1,000 MLS/HR Vital Signs/I&O 02/04/19 16:07 Temp 36.4 Pulse 96 Resp 18 B/P (MAP) 131/91 (104) Pulse Ox 100 O2 Delivery Room Air Blood Pressure Mean: 104 Diagnostic Imaging Diagonstic Imaging: Ultrasound Plain Films/CT/US/NM/MRI: pelvis Time of Consult: 17:42 Reviewed: Reviewed by Me (radiology report reviewed by me) Departure Impression Primary Impression: Retained products of conception Additional Impression: Anemia due to blood loss Disposition: ADMITTED INPATIENT Condition: Stable Admissions Decision to Admit Reason: Admit from ER (General) Decision to Admit/Date: Feb 04, 2019 Time/Decision to Admit Time: 17:42 Departure-Patient Inst. Referrals: [facility] (PCP) Primary Care Physician CHASE AMEZQUITA MD (Family) Primary Care Physician JESSICA SOTOMAYOR DO Feb 04, 2019 18:19
[2019-02-04] MEDS: LACTATED RINGERS 1,000 ML IV PRN ×2 (18:44→19:05)
--- NOTE | 2019-02-04 19:39 | Operative Report ---
Operative Report Date of Procedure/Surgery Feb 04, 2019 Surgeon (s) JESSICA SOTOMAYOR DO Mining Engineer (s): None Post-Operative Diagnosis Incomplete 2. Acute Blood Loss Anemia Procedure Performed Suction Dilation and Curettage Description of Procedure Anesthesia Type: MAC Estimated blood loss (mL): 200 ml Specimen(s) collected/removed Products of conception Description of the Procedure Ms. Chin was taken to the Operating Room with IV fluids running. Once in the OR, LMA was administered without difficulty. She was then placed in the dorsal lithotomy position, prepped and draped in the normal sterile fashion. Ms. Chin's bladder was drained of approximately 500 ml of urine. A bivalve speculum was placed in the vaginal vault. The anterior lip of the uterus was grasped with a single toothed tenaculum. She was then sounded to 5 inches. Then, utilizing Hegar dilators, her cervix was dilated in a stepwise fashion. Then, utilizing a 11 mm curved suction curette all intrauterine contents were removed. A large sharp curette was then introduced into the intrauterine cavity and curetting was undertaken until a gritty texture was noted. IV Pitocin was started. The single toothed tenaculum was removed and hemostasis was noted. All instruments were removed from the vaginal vault. Instruments and sponges were all accounted for. Ms. Chin was taken to the Recovery Room in good and stable condition. Findings of the Procedure A small amount of intrauterine tissue Allergies and Home Medications Allergies Uncoded Allergies: PENICILLIN (Allergy, Unknown, 12/05/11) Home Medications Alprazolam 0.25 Mg Tablet, 0.25 MG PO NEEDED, (Reported) Hydrocodone Bit/Acetaminophen 1 Each Tablet, 1 TAB PO Q4H PRN for pain Prescribed by: ROBIN CUNNINGHAM on 12/22/14 1141 Ibuprofen 200 Mg Tablet, 600 MG PO Q6H PRN for PAIN Prescribed by: ROBIN CUNNINGHAM on 12/22/14 1141 Metformin HCl 1,000 Mg Tablet, 2,000 MG PO DAILY, (Reported) Misoprostol 200 Mcg Tablet, 400 MCG PO Q4H Repeat doses every 4 hours until resolution of bleeding Prescribed by: MYRTLE CRUZ on 05/01/17 0232 Sertraline HCl 50 Mg Tablet, 50 MG PO DAILY, (Reported) [Bcp] , DAILY, (Reported) Patient Home Medication List Home Medication List Reviewed: Yes JESSICA SOTOMAYOR DO Feb 04, 2019 19:39
--- NOTE | 2019-02-04 20:10 | NUR ---
report received from Dori OSEGUERA. pt in room 305, oriented to room. IV fluids running per gravity. Pt awake and stating feels good. so at bedside. will monitor closely.
--- NOTE | 2019-02-04 20:26 | NUR ---
VSS. pt requesting to void. Pt up to br. Walks steady. denies dizziness or headache. Pt able to void 300ml clear urine. minimal bleeding. v pad changed and alfie care done per pt. Pt back to bed. blankets arranged. Pt states hungry, but vegetarian. Water, applesauce, jello, and potato chips given.
--- NOTE | 2019-02-04 21:18 | NUR ---
Pt requesting to be dc'd. Discharge papers discussed with pt. Pt denies questions. verbalizes understanding. papers signed. pt left to dress.
--- NOTE | 2019-02-05 09:58 | Anesthesia-General Post-Op ---
General Patient Condition Mental Status/LOC: Same as Preop Cardiovascular: Satisfactory Nausea/Vomiting: Absent Respiratory: Satisfactory Pain: Controlled Complications: Absent Post Op Complications Complications None Follow Up Care/Instructions Patient Instructions None needed. Anesthesia/Patient Condition Patient Condition Patient is doing well, no complaints, stable vital signs, no apparent adverse anesthesia problems. No complications reported per nursing. D[place] [facility] [place]: Yes GENARO MARTINEZ CRNA Feb 05, 2019 09:58
== END ==
LOC: EDUNIT# 15:58 → ER 15:59 → SDC 18:08
PROVIDERS: ATTEND Obstetrics & Gynecology
DX: O03.4 Incomplete spontaneous abortion without complication (principal); O73.1 Retained portions of placenta and membranes, without hemorrhage; D64.9 Anemia, unspecified; F17.290 Nicotine dependence, other tobacco product, uncomplicated; F12.90 Cannabis use, unspecified, uncomplicated; F32.9 Major depressive disorder, single episode, unspecified; F41.9 Anxiety disorder, unspecified; Z88.0 Allergy status to penicillin; Z79.891 Long term (current) use of opiate analgesic; Z79.84 Long term (current) use of oral hypoglycemic drugs; Z79.899 Other long term (current) drug therapy
CPT/HCPCS: 36415; 76817; 80053; 81000; 84702; 85025; 86850; 86900; 86901; 86920; 87077; 87088; 88305; 96360

== ENCOUNTER 2019-02-10 18:30 | Inpatient (IN) | payer SELFPAY ==
[~2019-02-10] VITALS: Ht 172.7 cm; Wt 67.6 kg
[~2019-02-10 18:30] MED LIST changes: -CEFD300C3 PO; -CLIN300C11 PO; -CLINDAMYCIN 900 MG/50 ML IVPB 50 ML IV ONE; -DEXAMETHASONE 10 MG/ML (DECADRON) 1 ML VIAL ONE; -DOXYCYCLINE 100 MG (VIBRAMYCIN) TABLET PO SCH; -FERROUS SULF 325 MG (IRON) TAB PO SCH; -HYDROmorphone 2 MG/ML VIAL (DILAUDID) IV ONE; -HYDROmorphone 2 MG/ML VIAL (DILAUDID) ONE; -IBUP-30 PO; -IBUPROFEN 800 MG (MOTRIN) TAB PO SCH; -KETOROLAC 30 MG/ML VIAL IVP ONE; -KETOROLAC 30 MG/ML VIAL ONE; -LIDOCAINE PF 2% 5 ML (XYLOCAINE) VIAL ONE; -METHYLERGONOVINE 0.2 MG/ML (METHERGINE) AMP ONE; -MIDAZOLAM 2 MG/2 ML (VERSED) VIAL ONE; -MISOPROSTOL 100 MCG (CYTOTEC) TAB PO SCH; -NS IV 1000 ML 1,000 ML IV ONE; -NS IV 500 ML 500 ML IV SCH; -ONDANSETRON 4 MG/2 ML (SDV) Z0FRAN IVP PRN; -ONDANSETRON 4 MG/2 ML (SDV) Z0FRAN ONE; -OXYTOCIN (PITOCIN) 10 UNIT/ML VIAL ONE; -SEVOFLURANE (ULTANE) 15 ML INHAL SOLN ONE; -fentaNYL INJECTION 100 MCG/2 ML AMP IVP PRN; -fentaNYL INJECTION 100 MCG/2 ML AMP ONE; -oxyCODONE/APAP 5/325MG (PERCOCET 5) TABLET PO PRN; -proPOfol 200 MG/20 ML (DIPRIVAN) VIAL IV ONE
[2019-02-10] MEDS ORDERED: NS IV 1000 ML 1,000 ML IV SCH (19:30)
[2019-02-10 19:53] LABS: BASOPHILS % (AUTO) 0 % (0-10); EOSINOPHILS % (AUTO) 0 % (0-10); HEMATOCRIT 21 % (35-52); LYMPHOCYTES # (AUTO) 0.3 X 10^3 (1.0-4.0); LYMPHOCYTES % (AUTO) 3 % (12-44); MEAN CORPUSCULAR HEMOGLOBIN 23 PG (25-34); MEAN CORPUSCULAR HGB CONC 30 G/DL (32-36); MEAN CORPUSCULAR VOLUME 78 FL (80-99); MEAN PLATELET VOLUME 11.5 FL (7.4-10.4); MONOCYTES # (AUTO) 0.4 X 10^3 (0.0-1.0); MONOCYTES % (AUTO) 5 % (0-12); NEUTROPHILS # (AUTO) 8.5 X 10^3 (1.8-7.8); NEUTROPHILS % (AUTO) 92 % (42-75); PLATELET COUNT 324 10^3/uL (130-400); RED CELL DISTRIBUTION WIDTH 16.5 % (10.0-14.5); WHITE BLOOD COUNT 9.3 10^3/uL (4.3-11.0)
[2019-02-10 19:55] LABS: HEMOGLOBIN 6.3 G/DL (11.5-16.0)
--- NOTE | 2019-02-10 20:11 | ED General ---
General Chief Complaint: General Problems/Pain Stated Complaint: CHILLS,SHAKY Nursing Triage Note: Pt ambulates to triage with c/o nausea all day, shaking/dizziness x 2 hrs. Pt states she got a D&C on the and had low Hgb at the time. Pt also reports diarrhea x 2 days. Pt denies any abd pain at this time. Nursing Sepsis Screen: No Definite Risk Source of Information: Patient Exam Limitations: No Limitations History of Present Illness Date Seen by Provider: Feb 10, 2019 Time Seen by Provider: 20:10 Initial Comments Wonderfully to ER with nausea all day, shaking and dizziness for about 2 hours. She had a D&C on the of this month at 6 weeks gestation Ab1. She's had persistent bleeding requiring use of about 7 pads per day since then. She had a hemoglobin at that time a 7.1. Timing/Duration: 1-2 Days Severity: Moderate Associated Systoms: Weakness Allergies and Home Medications Allergies Uncoded Allergies: PENICILLIN (Allergy, Unknown, 12/05/11) Home Medications Alprazolam 0.25 Mg Tablet, 0.25 MG PO NEEDED, (Reported) Doxycycline Hyclate 100 Mg Tablet, 100 MG PO BID@07,17 Prescribed by: JESSICA SOTOMAYOR on 02/04/191944 Ferrous Sulfate 325 Mg Tablet, 325 MG PO DAILY@0700 Prescribed by: JESSICA SOTOMAYOR on 02/04/191944 Ibuprofen 800 Mg Tablet, 800 MG PO Q8HR Prescribed by: JESSICA SOTOMAYOR on 02/04/191944 Metformin HCl 1,000 Mg Tablet, 2,000 MG PO DAILY, (Reported) Misoprostol 100 Mcg Tablet, 200 MCG PO Q6HR Prescribed by: JESSICA SOTOMAYOR on 02/04/191944 Oxycodone HCl/Acetaminophen 1 Each Tablet, 1 TAB PO Q6HR PRN for PAIN-MODERATE (5-7) Prescribed by: JESSICA SOTOMAYOR on 02/04/191944 Sertraline HCl 50 Mg Tablet, 50 MG PO DAILY, (Reported) Patient Home Medication List Home Medication List Reviewed: Yes Review of Systems Review of Systems Constitutional: see HPI EENTM: see HPI Respiratory: no symptoms reported Cardiovascular: no symptoms reported Genitourinary: no symptoms reported Musculoskeletal: no symptoms reported Skin: no symptoms reported Psychiatric/Neurological: No Symptoms Reported Hematologic/Lymphatic: No Symptoms Reported Immunological/Allergic: no symptoms reported Past Vvciyxp-Tqkgjk-Ltilzf Hx Patient Social History Alcohol Use: Rarely Uses Recreational Drug Use: Yes Drug of Choice: MARIJUANA Smoking Status: Current Everyday Smoker Type Used: Electronic/Vapor Recent Foreign Travel: No Contact w/Someone Who Travel: No Recent Infectious Disease Expo: No Recent Hopitalizations: No Physical Abuse: No Sexual Abuse: No Mistreated: No Fear: No Past Medical History Surgeries: Yes (UMBIL HERNIA, D&C) Abdominal, Orthopedic Respiratory: No Cardiac: No Neurological: No Reproductive Disorders: Yes Female Reproductive Disorders: Polycystic Ovarian Dis Genitourinary: No Gastrointestinal: No Musculoskeletal: No Endocrine: No HEENT: No Cancer: No Psychosocial: Yes Anxiety, Depression Integumentary: No Blood Disorders: No Family Medical History No Pertinent Family Hx Physical Exam Vital Signs Vital Signs - First Documented 02/10/19 19:15 Temp 37.2 Pulse 125 Resp 20 B/P (MAP) 109/72 (84) Pulse Ox 100 O2 Delivery Room Air Capillary Refill : Less Than 3 Seconds Height, Weight, BMI Height: 5'7.00" Weight: 145lbs. 0.0oz. [id number]; 22.00 BMI Method:Stated General Appearance: No Apparent Distress, WD/WN, Other (pale) Eyes: Bilateral Eye Normal Inspection, Bilateral Eye PERRL, Bilateral Eye EOMI HEENT: PERRL/EOMI, TMs Normal Respiratory: No Accessory Muscle Use, No Respiratory Distress Cardiovascular: Regular Rate, Rhythm, Normal Peripheral Pulses, Other (rate 93 at the time I examined) Gastrointestinal: Normal Bowel Sounds, Non Tender, Soft Genital/Rectal: Other (pelvic exam done with Kiera aren't at the bedside reveals a small amount of clotted blood in the vaginal vault, this was removed with some large Q-tips, visualization of the cervical os revealed a small amount of blood as a very slow ooze dark in color.) Neurologic/Psychiatric: Alert, Oriented x3 Skin: Normal Color, Warm/Dry Progress/Results/Core Measures Suspected Sepsis Recent Fever Within 48 Hours: No Infection Criteria Present: None New/Unexplained Altered Menta: No Sepsis Screen: No Definite Risk SIRS Temperature: Pulse: 125 Respiratory Rate: 20 Laboratory Tests 02/10/19 19:30: White Blood Count 9.3 Blood Pressure 109 /72 Mean: 84 Laboratory Tests 12/26/19 19:30: Creatinine 0.67, INR Comment 1.1, Platelet Count 324, Total Bilirubin 0.7 Results/Orders Lab Results Laboratory Tests Test 02/10/19 19:30 Range/Units White Blood Count 9.3 4.3-11.0 10^3/uL Red Blood Count 2.69 L 4.35-5.85 10^6/uL Hemoglobin 6.3 *L 11.5-16.0 G/DL Hematocrit 21 L 35-52 % Mean Corpuscular Volume 78 L 80-99 FL Mean Corpuscular Hemoglobin 23 L 25-34 PG Mean Corpuscular Hemoglobin Concent 30 L 32-36 G/DL Red Cell Distribution Width 16.5 H 10.0-14.5 % Platelet Count 324 130-400 10^3/uL Mean Platelet Volume 11.5 H 7.4-10.4 FL Neutrophils (%) (Auto) 92 H 42-75 % Lymphocytes (%) (Auto) 3 L 12-44 % Monocytes (%) (Auto) 5 0-12 % Eosinophils (%) (Auto) 0 0-10 % Basophils (%) (Auto) 0 0-10 % Neutrophils # (Auto) 8.5 H 1.8-7.8 X 10^3 Lymphocytes # (Auto) 0.3 L 1.0-4.0 X 10^3 Monocytes # (Auto) 0.4 0.0-1.0 X 10^3 Eosinophils # (Auto) 0.0 0.0-0.3 10^3/uL Basophils # (Auto) 0.0 0.0-0.1 10^3/uL Neutrophils % (Manual) 96 % Lymphocytes % (Manual) 1 % Monocytes % (Manual) 2 % Band Neutrophils 1 % Polychromasia SLIGHT Hypochromasia MARKED Anisocytosis MARKED Microcytosis MARKED Prothrombin Time 14.4 12.2-14.7 SEC INR Comment 1.1 0.8-1.4 Sodium Level 137 135-145 MMOL/L Potassium Level 3.7 3.6-5.0 MMOL/L Chloride Level 106 98-107 MMOL/L Carbon Dioxide Level 19 L 21-32 MMOL/L Anion Gap 12 5-14 MMOL/L Blood Urea Nitrogen 13 7-18 MG/DL Creatinine 0.67 0.60-1.30 MG/DL Estimat Glomerular Filtration Rate > 60 BUN/Creatinine Ratio 19 Glucose Level 89 70-105 MG/DL Calcium Level 8.2 L 8.5-10.1 MG/DL Corrected Calcium 7.9 L 8.5-10.1 MG/DL Total Bilirubin 0.7 0.1-1.0 MG/DL Aspartate Amino Transf (AST/SGOT) 14 5-34 U/L Alanine Aminotransferase (ALT/SGPT) 13 0-55 U/L Alkaline Phosphatase 42 40-136 U/L Total Protein 6.9 6.4-8.2 GM/DL Albumin 4.4 3.2-4.5 GM/DL My Orders Orders - ARTHUR MEHTA TRANSFER TABLE OPERATOR Cbc With Automated Diff (02/10/19 19:25) Comprehensive Metabolic Panel (02/10/19 19:25) Ua Culture If Indicated (02/10/19 19:25) Ed Iv/Invasive Line Start (02/10/19 19:25) Protime With Inr (02/10/19 19:25) Ns Iv 1000 Ml (Sodium Chloride 0.9%) (02/10/19 19:30) Manual Differential (02/10/19 19:30) Red Cells Leukocytes Reduced (02/10/19 19:55) Type And Screen (02/10/19 19:55) Fentanyl Injection (Sublimaze Injection (02/10/19 21:00) Vital Signs/I&O 02/10/19 19:15 Temp 37.2 Pulse 125 Resp 20 B/P (MAP) 109/72 (84) Pulse Ox 100 O2 Delivery Room Air Capillary Refill : Less Than 3 Seconds Blood Pressure Mean: 84 Departure Communication (Admissions) Time/Spoke to Admitting Phy: 20:[address] Ellington, he didn't feel there is anything surgical he would need to intervene on. I then spoke with Dr. Amezquita, she agrees to admit the patient, transfuse 3 units of packed red cells overnight, she'll reevaluate in the morning and determine whether or not Dr. Ellington needs consult. He stated he would be happy to do that if necessary. Impression Primary Impression: Severe anemia Additional Impression: Vaginal bleeding Disposition: ADMITTED INPATIENT Condition: Stable Admissions Decision to Admit Reason: Admit from ER (General) Decision to Admit/Date: Feb 10, 2019 Time/Decision to Admit Time: 20:16 Departure-Patient Inst. Referrals: [facility] (PCP) Primary Care Physician CHASE AMEZQUITA MD (Family) Primary Care Physician ARTHUR METHA APRN Feb 10, 2019 20:11
[2019-02-10 20:15] LABS: INR 1.1 (0.8-1.4); PROTHROMBIN TIME PATIENT 14.4 SEC (12.2-14.7)
[2019-02-10 20:22] LABS: ALANINE AMINOTRANSFERASE 13 U/L (0-55); ALBUMIN 4.4 GM/DL (3.2-4.5); ALKALINE PHOSPHATASE 42 U/L (40-136); BILIRUBIN,TOTAL 0.7 MG/DL (0.1-1.0); BUN/CREATININE RATIO 19; CALCIUM 8.2 MG/DL (8.5-10.1); CARBON DIOXIDE 19 MMOL/L (21-32); CHLORIDE 106 MMOL/L (98-107); CREATININE SERUM 0.67 MG/DL (0.60-1.30); GFR ESTIMATED > 60; GLUCOSE 89 MG/DL (70-105); POTASSIUM 3.7 MMOL/L (3.6-5.0); SODIUM 137 MMOL/L (135-145); TOTAL PROTEIN 6.9 GM/DL (6.4-8.2)
[2019-02-10 20:29] LABS: ANISOCYTOSIS MARKED; BAND NEUTROPHILS 1 %; HYPOCHROMASIA MARKED; LYMPHOCYTES % (MANUAL) 1 %; MICROCYTOSIS MARKED; MONOCYTES % (MANUAL) 2 %; NEUTROPHILS % (MANUAL) 96 %; POLYCHROMASIA SLIGHT
[2019-02-10] MEDS ORDERED: fentaNYL INJECTION 100 MCG/2 ML AMP IVP ONE (21:00)
--- NOTE | 2019-02-10 21:38 | NUR ---
TRISTAN CROWLEY admitted to room 427-1, with an admitting diagnosis of ANEMIA, on 02/10/19 from ED via WHEELCHAIR, accompanied by STAFF.TRISTAN CROWLEY introduced to surroundings, call light, bed controls, phone, TV, temperature control, lights, meal times, smoking policy, visitor policy, side rail policy, bathrooms and showers. Patient Rights given to patient in the handbook. TRISTAN CROWLEY verbalizes understanding that [facility] is not responsible for the loss or damage to any personal effects or valuables that are kept in the patients posession during their hospitalization. TRISTAN CROWLEY verbalizes understanding of Interdisciplinary Patient Education. Patient and/or family were informed about the Rapid Response Team and its purpose.
[2019-02-10 21:49] VITALS: BP 96/53
[2019-02-10] MEDS: HYDROcodone/APAP 5 MG/325 MG (LORTAB) TAB PO PRN (22:03)
[2019-02-10 22:20] VITALS: BP 103/57
[2019-02-10 22:43] VITALS: BP 100/50
[2019-02-10] MEDS: NS IV 1000 ML 1,000 ML IV SCH (22:49)
[2019-02-11] VITALS (13 sets, daily range): BP systolic 85–110; BP diastolic 38–64
[2019-02-11] MEDS: ONDANSETRON 4 MG/2 ML (SDV) Z0FRAN IVP PRN (02:23)
[2019-02-11] MEDS: HYDROcodone/APAP 5 MG/325 MG (LORTAB) TAB PO PRN ×3 (02:24→22:18)
[2019-02-11] MEDS ORDERED: GENTAMICIN 40 MG/ML 2 ML INJ SDV IV SCH (07:45)
[2019-02-11] MEDS: CLINDAMYCIN 900 MG/50 ML IVPB 50 ML IV SCH ×2 (08:38→17:46)
[2019-02-11] MEDS: DOCUSATE SODIUM 100 MG (COLACE) CAP PO SCH ×2 (08:38→22:14)
[2019-02-11] MEDS ORDERED: ACETAMINOPHEN 500 MG TAB (TYLENOL) ONE (08:39)
[2019-02-11] MEDS: ACETAMINOPHEN 500 MG TAB (TYLENOL) PO PRN (08:43)
[2019-02-11 08:44] LABS: BASOPHILS % (AUTO) 0 % (0-10); EOSINOPHILS # (AUTO) 0.1 10^3/uL (0.0-0.3); EOSINOPHILS % (AUTO) 1 % (0-10); HEMATOCRIT 29 % (35-52); HEMOGLOBIN 9.3 G/DL (11.5-16.0); LYMPHOCYTES # (AUTO) 0.6 X 10^3 (1.0-4.0); LYMPHOCYTES % (AUTO) 12 % (12-44); MEAN CORPUSCULAR HEMOGLOBIN 26 PG (25-34); MEAN CORPUSCULAR HGB CONC 32 G/DL (32-36); MEAN CORPUSCULAR VOLUME 80 FL (80-99); MEAN PLATELET VOLUME 11.3 FL (7.4-10.4); MONOCYTES # (AUTO) 0.5 X 10^3 (0.0-1.0); MONOCYTES % (AUTO) 10 % (0-12); NEUTROPHILS % (AUTO) 77 % (42-75); PLATELET COUNT 214 10^3/uL (130-400); RED CELL DISTRIBUTION WIDTH 16.2 % (10.0-14.5); WHITE BLOOD COUNT 5.2 10^3/uL (4.3-11.0)
--- NOTE | 2019-02-11 08:44 | NUR ---
PTD GENTAMICIN LABS SCr 0.67, CrCl 125, IBW 63.8 ASSESSMENT/PLAN DOSED AT 470MG (7MG/KG) AT 0900 ON 02/11, WILL CHECK LEVEL AT 1900 (10 HOURS AFTER DOSE) ON 02/11
[2019-02-11] MEDS ORDERED: IBUP-30 PO ×2 (09:11)
[2019-02-11 09:12] LABS: ALANINE AMINOTRANSFERASE 11 U/L (0-55); ALBUMIN 3.6 GM/DL (3.2-4.5); ALKALINE PHOSPHATASE 39 U/L (40-136); BILIRUBIN,TOTAL 1.3 MG/DL (0.1-1.0); BUN/CREATININE RATIO 12; CALCIUM 7.4 MG/DL (8.5-10.1); CARBON DIOXIDE 19 MMOL/L (21-32); CHLORIDE 107 MMOL/L (98-107); CREATININE SERUM 0.66 MG/DL (0.60-1.30); GFR ESTIMATED > 60; GLUCOSE 95 MG/DL (70-105); POTASSIUM 3.5 MMOL/L (3.6-5.0); SODIUM 134 MMOL/L (135-145); TOTAL PROTEIN 5.6 GM/DL (6.4-8.2)
[2019-02-11] MEDS: GENTAMICIN IV SCH (09:22)
[2019-02-11] MEDS: NS IV SCH (09:22)
--- NOTE | 2019-02-11 11:24 | Diagnostic Imaging Report ---
PROCEDURE: US NONOB transvaginal. TECHNIQUE: Multiple real-time grayscale images were obtained of the pelvis in various projections endovaginally. INDICATION: Pelvic cramping and vaginal bleeding. Patient status post D&C one week ago. The uterus measures 8.2 x 3.9 x 5.4 cm. No myometrial mass is detected. The endometrium appears to be moderately distended with fluid and debris. No internal vascularity is seen. A right ovary measures 3.2 x 2.7 x 2.0 cm and the left ovary measures 3.5 x 1.7 x 1.7 cm. Both ovaries contain small follicles. There is blood flow to the ovaries. No adnexal mass or free fluid is seen. IMPRESSION: Debris-filled endometrium without vascularity. This may represent blood products. No other significant abnormality is detected. Dictated by: Dictated on workstation # [id number]
--- NOTE | 2019-02-11 13:08 | History & Physical ---
HPI History of Present Illness: Pt had medical beginning of Dec with one dose of cytotec. She presented to ER last Thursday with heavy bleeding and had D&C last Thursday, bleeding since has been light, had one day of just spotting, but when urinating passed clots. Yesterday felt dizzy, anxious, short of breath. Has felt feverish but has no thermometer. Diarrhea x a week. Nausea. found to have hemoglobin 6.3 in ER. Initially afebrile and with no leukocytosis, but overnight developed fever. Reports no active bleeding since admit. Date seen by provider: Feb 11, 2019 Time Seen by Provider: 13:00 Attending Physician Chase Laws MD [facility] Consult Date of Admission Feb 10, 2019 at 20:50 Home Medications Home Medications Reviewed patient Home Medication Reconciliation performed by pharmacy medication reconciliations bomb technician and/or nursing. Patients Allergies have been reviewed. Allergies Coded Allergies: Penicillins (Unverified Allergy, Unknown, 02/11/19) DLR-Lyhqsq-Iwefnd Hx Patient Social History Alcohol Use: Regular Use (bar tends, reports at least a drink a day, but maybe 1-4 drinks most nights) Recreational Drug Use: Yes Drug of Choice: MARIJUANA Smoking Status: Current Everyday Smoker Type Used: Electronic/Vapor Recent Foreign Travel: No Contact w/other who traveled: No Recent Hopitalizations: No Recent Infectious Disease Expo: No Past Medical History PMHx: Denies SurgHx: Right shoulder surgery Hernia surgery as a child D&C Hemorrhagic ovarian cyst removal Family Medical History Significant Family History: No Pertinent Family Hx Review of Systems (CHC) Constitutional: fever, malaise Respiratory: see HPI Gastrointestinal: see HPI Genitourinary: see HPI Reviewed Test Results Reviewed Test Results Lab Laboratory Tests Test 02/10/19 19:30 02/11/19 08:34 Range/Units White Blood Count 9.3 5.2 4.3-11.0 X 10^3 Red Blood Count 2.69 L 3.63 L 4.35-5.85 10^6/uL Hemoglobin 6.3 *L 9.3 #L 11.5-16.0 G/DL Hematocrit 21 L 29 L 35-52 % Mean Corpuscular Volume 78 L 80 80-99 FL Mean Corpuscular Hemoglobin 23 L 26 25-34 PG Mean Corpuscular Hemoglobin Concent 30 L 32 32-36 G/DL Red Cell Distribution Width 16.5 H 16.2 H 10.0-14.5 % Platelet Count 324 214 130-400 10^3/uL Mean Platelet Volume 11.5 H 11.3 H 7.4-10.4 FL Neutrophils (%) (Auto) 92 H 77 H 42-75 % Lymphocytes (%) (Auto) 3 L 12 12-44 % Monocytes (%) (Auto) 5 10 0-12 % Eosinophils (%) (Auto) 0 1 0-10 % Basophils (%) (Auto) 0 0 0-10 % Neutrophils # (Auto) 8.5 H 4.0 1.8-7.8 X 10^3 Lymphocytes # (Auto) 0.3 L 0.6 L 1.0-4.0 X 10^3 Monocytes # (Auto) 0.4 0.5 0.0-1.0 X 10^3 Eosinophils # (Auto) 0.0 0.1 0.0-0.3 10^3/uL Basophils # (Auto) 0.0 0.0 0.0-0.1 10^3/uL Neutrophils % (Manual) 96 % Lymphocytes % (Manual) 1 % Monocytes % (Manual) 2 % Band Neutrophils 1 % Polychromasia SLIGHT Hypochromasia MARKED Anisocytosis MARKED Microcytosis MARKED Prothrombin Time 14.4 12.2-14.7 SEC INR Comment 1.1 0.8-1.4 Sodium Level 137 134 L 135-145 MMOL/L Potassium Level 3.7 3.5 L 3.6-5.0 MMOL/L Chloride Level 106 107 98-107 MMOL/L Carbon Dioxide Level 19 L 19 L 21-32 MMOL/L Anion Gap 12 8 5-14 MMOL/L Blood Urea Nitrogen 13 8 7-18 MG/DL Creatinine 0.67 0.66 0.60-1.30 MG/DL Estimat Glomerular Filtration Rate > 60 > 60 BUN/Creatinine Ratio 19 12 Glucose Level 89 95 70-105 MG/DL Calcium Level 8.2 L 7.4 L 8.5-10.1 MG/DL Corrected Calcium 7.9 L 7.7 L 8.5-10.1 MG/DL Total Bilirubin 0.7 1.3 H 0.1-1.0 MG/DL Aspartate Amino Transf (AST/SGOT) 14 13 5-34 U/L Alanine Aminotransferase (ALT/SGPT) 13 11 0-55 U/L Alkaline Phosphatase 42 39 L 40-136 U/L Total Protein 6.9 5.6 L 6.4-8.2 GM/DL Albumin 4.4 3.6 3.2-4.5 GM/DL Lactic Acid Level 0.71 0.50-2.00 MMOL/L Human Chorionic Gonadotropin, Quant < 5 <5 MIU/ML Physical Exam-(CHC) Physical Exam Vital Signs VS - Last 72 Hours, by Label 02/10/19 02/10/19 02/10/19 02/10/19 19:15 21:35 21:49 22:20 Temp 37.2 37.2 38.7 38.2 Pulse 125 99 87 90 Resp 20 15 20 18 B/P (MAP) 109/72 (84) 101/53 (84) 96/53 103/57 Pulse Ox 100 100 100 100 O2 Delivery Room Air Room Air Room Air Room Air 02/10/19 02/10/19 02/10/19 02/11/19 22:22 22:43 23:36 00:00 Temp 37.8 38.0 Pulse 90 91 94 Resp 18 18 B/P (MAP) 100/50 110/61 (77) Pulse Ox 100 97 O2 Delivery Room Air Room Air Room Air 02/11/19 02/11/19 02/11/19 02/11/19 00:53 01:00 01:17 01:35 Temp 37.8 37.2 37.2 Pulse 84 83 87 80 Resp 16 16 16 B/P (MAP) 101/52 93/50 95/52 Pulse Ox 100 100 100 O2 Delivery Room Air Room Air Room Air 02/11/19 02/11/19 02/11/19 02/11/19 03:50 04:00 04:07 04:27 Temp 37.7 37.7 37.7 37.0 Pulse 88 88 88 86 Resp 18 18 16 16 B/P (MAP) 110/54 110/54 (72) 110/54 99/58 Pulse Ox 97 97 97 98 O2 Delivery Room Air Room Air Room Air Room Air 02/11/19 02/11/19 02/11/19 02/11/19 06:44 06:58 08:00 08:00 Temp 37.0 38.7 Pulse 90 80 101 Resp 16 16 B/P (MAP) 98/53 85/38 (54) Pulse Ox 100 97 97 O2 Delivery Room Air Room Air Room Air 02/11/19 02/11/19 08:43 12:40 Temp 38.7 Pulse 70 Capillary Refill : Less Than 3 Seconds General Appearance: WD/WN, no apparent distress Respiratory: lungs clear, normal breath sounds Cardiovascular: regular rate, rhythm, no murmur Gastrointestinal: normal bowel sounds, non tender, soft Extremities: no pedal edema Neurologic/Psychiatric: alert, normal mood/affect Skin: normal color, warm/dry Assessment/Plan Assessment/Plan Admission Status: Inpatient Order (span 2 midnights) Reason for Inpatient Admission: Endometritis requiring IV antibiotics, severe anemia requiring transfusion (1) Endometritis Status: Acute Assessment & Plan: s/p D&C last week, repeat US today with debris in endometrial canal but no vascularity. Discussed with Dr. Zuniga boiler control room operator for Care Rep, would not recommend repeat procedure at this time. Blood cultures pending, started amp/gent. Lactic acid okay. (2) Anemia due to blood loss Status: Acute Assessment & Plan: s/p transfusion last night with improved hemoglobin today. (3) DVT prophylaxis Status: Acute Assessment & Plan: SCDs, no pharmacologic due to active bleeding and severe anemia Clinical Quality Measures DVT/VTE Risk/Contraindication: Risk Factor Score Per Nursin RFS Level Per Nursing on Admit: 1=Low/No VTE PPX CHASE LAWS MD Feb 11, 2019 13:08
[2019-02-11] MEDS ORDERED: IBUPROFEN 800 MG (MOTRIN) TAB PO PRN (14:45)
[2019-02-11] MEDS: NS IV 1000 ML 1,000 ML IV SCH ×2 (18:43→18:44)
[2019-02-11] MEDS ORDERED: TROUGH ORDER-PHARMACY XX NR (19:00)
[2019-02-12] VITALS: BP 100/63
[2019-02-12] MEDS: CLINDAMYCIN 900 MG/50 ML IVPB 50 ML IV SCH ×4 (00:59→23:30)
[2019-02-12] MEDS: NS IV 1000 ML 1,000 ML IV SCH ×5 (00:59→23:27)
[2019-02-12 04:10] VITALS: BP 107/67
[2019-02-12 06:11] LABS: BASOPHILS % (AUTO) 1 % (0-10); EOSINOPHILS # (AUTO) 0.2 10^3/uL (0.0-0.3); EOSINOPHILS % (AUTO) 5 % (0-10); HEMATOCRIT 28 % (35-52); HEMOGLOBIN 8.9 G/DL (11.5-16.0); LYMPHOCYTES # (AUTO) 1.2 X 10^3 (1.0-4.0); LYMPHOCYTES % (AUTO) 34 % (12-44); MEAN CORPUSCULAR HEMOGLOBIN 26 PG (25-34); MEAN CORPUSCULAR HGB CONC 32 G/DL (32-36); MEAN CORPUSCULAR VOLUME 81 FL (80-99); MEAN PLATELET VOLUME 12.1 FL (7.4-10.4); MONOCYTES # (AUTO) 0.7 X 10^3 (0.0-1.0); MONOCYTES % (AUTO) 21 % (0-12); NEUTROPHILS # (AUTO) 1.3 X 10^3 (1.8-7.8); NEUTROPHILS % (AUTO) 40 % (42-75); PLATELET COUNT 215 10^3/uL (130-400); RED CELL DISTRIBUTION WIDTH 15.9 % (10.0-14.5); WHITE BLOOD COUNT 3.4 10^3/uL (4.3-11.0)
[2019-02-12 06:30] LABS: BUN/CREATININE RATIO 8; CALCIUM 7.6 MG/DL (8.5-10.1); CARBON DIOXIDE 18 MMOL/L (21-32); CHLORIDE 113 MMOL/L (98-107); CREATININE SERUM 0.63 MG/DL (0.60-1.30); GFR ESTIMATED > 60; GLUCOSE 90 MG/DL (70-105); POTASSIUM 3.7 MMOL/L (3.6-5.0); SODIUM 139 MMOL/L (135-145)
[2019-02-12] MEDS: FERROUS SULF 325 MG (IRON) TAB PO SCH (06:31)
[2019-02-12 08:00] VITALS: BP 97/60
[2019-02-12] MEDS: DOCUSATE SODIUM 100 MG (COLACE) CAP PO SCH ×2 (08:26→21:40)
[2019-02-12] MEDS: NS IV SCH (08:26)
[2019-02-12] MEDS: GENTAMICIN IV SCH (08:26)
[2019-02-12] MEDS: HYDROcodone/APAP 5 MG/325 MG (LORTAB) TAB PO PRN ×3 (08:28→23:28)
--- NOTE | 2019-02-12 13:25 | Progress Note - Hospitalist ---
Subjective HPI/CC On Admission Date Seen by Provider: Feb 12, 2019 Time Seen by Provider: 13:30 Subjective/Events-last exam patient had some clots that were passed last night but has been afebrile since yesterday. she has no specific complaints today that appears to be tired and still doesn't feel well. Review of Systems Gastrointestinal: Abdominal Pain Neurological: Weakness Focused Exam Lactate Level 02/11/19 08:34: Lactic Acid Level 0.71 Objective Exam Vital Signs Vital Signs Date Time Temp Pulse Resp B/P (MAP) Pulse Ox O2 Delivery O2 Flow Rate FiO2 02/13/19 12:03 54 02/13/19 11:32 37.0 16 108/70 (83) 100 Room Air Capillary Refill : Less Than 3 Seconds General Appearance: No Apparent Distress, WD/WN HEENT: Normal ENT Inspection Respiratory: Lungs Clear, Normal Breath Sounds, No Accessory Muscle Use, No Respiratory Distress Cardiovascular: Regular Rate, Rhythm, No Gallop, No Murmur, Normal Peripheral Pulses Gastrointestinal: Normal Bowel Sounds, Non Tender, Soft Rectal: Deferred Extremity: Normal Capillary Refill, No Pedal Edema Results/Procedures Lab Laboratory Tests 02/13/19 12:10 Patient resulted labs reviewed. Assessment/Plan Assessment and Plan Assess & Plan/Chief Complaint 1. Endometritis- on clindamycin and gentamicin 2. Anemia stable 3. Leukopenia Plan possible discharge in the a.m. if she is afebrile Clinical Quality Measures DVT/VTE Risk/Contraindication: Risk Factor Score Per Nursin RFS Level Per Nursing on Admit: 1=Low/No VTE PPX KATINA PINK MD Feb 12, 2019 13:25
[2019-02-12 16:00] VITALS: BP 100/54
[2019-02-12] MEDS ORDERED: TROUGH ORDER-PHARMACY XX NR (19:00)
[2019-02-12 20:00] VITALS: BP 99/61
[2019-02-12 23:34] VITALS: BP 110/51
[2019-02-13 04:00] VITALS: BP 100/63
[2019-02-13] MEDS: FERROUS SULF 325 MG (IRON) TAB PO SCH (06:00)
[2019-02-13] MEDS: NS IV 1000 ML 1,000 ML IV SCH (06:00)
[2019-02-13 07:35] VITALS: BP 106/66
[2019-02-13] MEDS: CLINDAMYCIN 900 MG/50 ML IVPB 50 ML IV SCH (07:46)
[2019-02-13] MEDS: NS IV SCH (07:47)
[2019-02-13] MEDS: GENTAMICIN IV SCH (07:47)
[2019-02-13] MEDS: DOCUSATE SODIUM 100 MG (COLACE) CAP PO SCH (07:47)
[2019-02-13] MEDS: ONDANSETRON 4 MG/2 ML (SDV) Z0FRAN IVP PRN (11:07)
[2019-02-13] MEDS: ACETAMINOPHEN 500 MG TAB (TYLENOL) PO PRN (11:07)
[2019-02-13 11:32] VITALS: BP 108/70
[2019-02-13 12:17] LABS: BASOPHILS # (AUTO) 0.1 10^3/uL (0.0-0.1); BASOPHILS % (AUTO) 1 % (0-10); EOSINOPHILS # (AUTO) 0.2 10^3/uL (0.0-0.3); EOSINOPHILS % (AUTO) 5 % (0-10); HEMATOCRIT 32 % (35-52); LYMPHOCYTES # (AUTO) 1.7 X 10^3 (1.0-4.0); LYMPHOCYTES % (AUTO) 34 % (12-44); MEAN CORPUSCULAR HEMOGLOBIN 26 PG (25-34); MEAN CORPUSCULAR HGB CONC 32 G/DL (32-36); MEAN CORPUSCULAR VOLUME 81 FL (80-99); MEAN PLATELET VOLUME 11.8 FL (7.4-10.4); MONOCYTES # (AUTO) 0.8 X 10^3 (0.0-1.0); MONOCYTES % (AUTO) 17 % (0-12); NEUTROPHILS # (AUTO) 2.1 X 10^3 (1.8-7.8); NEUTROPHILS % (AUTO) 43 % (42-75); PLATELET COUNT 240 10^3/uL (130-400); RED CELL DISTRIBUTION WIDTH 16.8 % (10.0-14.5); WHITE BLOOD COUNT 4.8 10^3/uL (4.3-11.0)
[2019-02-13 12:35] LABS: BUN/CREATININE RATIO 7; CALCIUM 8.4 MG/DL (8.5-10.1); CARBON DIOXIDE 21 MMOL/L (21-32); CHLORIDE 108 MMOL/L (98-107); CREATININE SERUM 0.67 MG/DL (0.60-1.30); GFR ESTIMATED > 60; GLUCOSE 82 MG/DL (70-105); SODIUM 140 MMOL/L (135-145)
[2019-02-13] MEDS ORDERED: CLIN300C11 PO ×2 (13:52)
[2019-02-13] MEDS ORDERED: CEFD300C3 PO ×2 (13:52)
--- NOTE | 2019-02-13 14:02 | Discharge Summary ---
Discharge Summary Hospital Course Was the Problem List Reviewed?: Yes Hospital Course Date of Admission: Feb 11, 2019 at 08:00 Admission Diagnosis : [facility]: 02/13/19 Discharge Diagnosis: [ endometritis Anemia secondary to dysfunctional uterine bleeding] Hospital Course: [ ]23 year old white female admitted with persistent bleeding and anemia after D&C. Sonogram showed some debris consistent with blood clots. The patient had fever and an elevated white count consistent with endometritis. she was placed on gentamicin and clindamycin with improvement in her white count and fever. Patient was transfused with 3 units of packed cells. Her hemoglobin was 10 at the time of discharge. She was feeling much better and ready to go home. Labs and Pending Lab Test: Laboratory Tests 02/12/19 18:55: Random Gentamicin Level 2.7 02/13/19 12:10: White Blood Count 4.8, Red Blood Count 3.92L, Hemoglobin 10.0L, Hematocrit 32L, Mean Corpuscular Volume 81, Mean Corpuscular Hemoglobin 26, Mean Corpuscular Hemoglobin Concent 32, Red Cell Distribution Width 16.8H, Platelet Count 240, Mean Platelet Volume 11.8H, Neutrophils (%) (Auto) 43, Lymphocytes (%) (Auto) 34, Monocytes (%) (Auto) 17H, Eosinophils (%) (Auto) 5, Basophils (%) (Auto) 1, Neutrophils # (Auto) 2.1, Lymphocytes # (Auto) 1.7, Monocytes # (Auto) 0.8, Eosinophils # (Auto) 0.2, Basophils # (Auto) 0.1, Sodium Level 140, Potassium Level 4.0, Chloride Level 108H, Carbon Dioxide Level 21, Anion Gap 11, Blood Urea Nitrogen 5L, Creatinine 0.67, Estimat Glomerular Filtration Rate > 60, BUN/Creatinine Ratio 7, Glucose Level 82, Calcium Level 8.4L Microbiology 02/11/19 Blood Culture - Preliminary, Resulted No growth Home Meds Active Clindamycin HCl 300 Mg Capsule 300 Mg PO Q6H 7 Days Percocet 5-325 mg Tablet (Oxycodone HCl/Acetaminophen) 1 Each Tablet 1 Tab PO Q6HR PRN Ferrous Sulfate 325 Mg Tablet 325 Mg PO DAILY@0700 Reported Advil (Ibuprofen) 200 Mg Tablet 400-800 Mg PO TID PRN Assessment/Pt Instructions follow-up with Dr. Laws or with any increased pain or bleeding or fevers Discharge Instructions Discharge Diet: No Restrictions Discharge Physical Examination Vital Signs Vital Signs Date Time Temp Pulse Resp B/P (MAP) Pulse Ox O2 Delivery O2 Flow Rate FiO2 02/13/19 12:03 54 02/13/19 11:32 37.0 16 108/70 (83) 100 Room Air General Appearance: No Apparent Distress, WD/WN HEENT: TMs Normal, Normal ENT Inspection, Pharynx Normal Respiratory: Lungs Clear, Normal Breath Sounds, No Accessory Muscle Use, No R espiratory Distress Cardiovascular: Regular Rate, Rhythm, No Gallop, No Murmur Gastrointestinal: Normal Bowel Sounds, No Organomegaly, Soft Extremity: Normal Capillary Refill, Normal Range of Motion, No Calf Tenderness Skin: Normal Color, Warm/Dry Neurologic/Psychiatric: Alert, Oriented x3, No Motor/Sensory Deficits, Normal Mood/Affect, trousseau consultant II-XII Norm as Tested Allergies: Coded Allergies: Penicillins (Unverified Allergy, Unknown, 02/11/19) Copy Copies To 1: CHASE LAWS MD Discharge Summary Date of Admission Feb 11, 2019 at 08:00 Date of Discharge Discharge Date: Feb 13, 2019 Discharge Time: 1400 Discharge Diagnosis 1. Endometritis- treated with Clindamycin and gentamicin 2. Anemia stable 3. Leukopenia Plan possible discharge in the a.m. if she is afebrile Clinical Quality Measures DVT/VTE Risk/Contraindication: Risk Factor Score Per Nursin RFS Level Per Nursing on Admit: 1=Low/No VTE PPX KATINA PINK MD Feb 13, 2019 14:02
[2019-02-13 15:09] VITALS: BP 108/70
== END 2019-02-13 15:12 | disposition home or self-care (01) | DRG 779 ==
LOC: EDUNIT# 18:30 → ER 18:32 → 4TH 20:50 → OBSVTOIN 02-11 08:00
PROVIDERS: ADMIT Family Medicine; ATTEND Family Medicine
DX: O03.5 Genital tract and pelvic infection following complete or unspecified spontaneous abortion (principal); D62 Acute posthemorrhagic anemia; N17.9 Acute kidney failure, unspecified; F17.210 Nicotine dependence, cigarettes, uncomplicated; N93.8 Other specified abnormal uterine and vaginal bleeding
CPT/HCPCS: 36415; 76830; 80048; 80053; 80170; 83605; 84702; 85007; 85025; 85027; 85610; 86850; 86900; 86901; 86920; 87040; 96361; 96374; G0378

== ENCOUNTER 2021-04-23 12:20 | Emergency (ER) | payer SELFPAY ==
[~2021-04-23] VITALS: Ht 173 cm; Wt 63.0 kg
[~2021-04-23 12:20] MED LIST changes: +CEFD300C3 PO; +CLIN-144 PO; +IBUP-30 PO; +MISO100T42 PO; -[UNRECOGNIZED DRUG - CODE] PO
[2021-04-23] MEDS ORDERED: fentaNYL INJ 100 MCG/2 ML AMP IVP ONE (12:30)
[2021-04-23] MEDS ORDERED: KETOROLAC 30 MG/ML VIAL IVP ONE (12:30)
--- NOTE | 2021-04-23 12:36 | ED Back Pain ---
General Chief Complaint: Back Problems Stated Complaint: BACK INJ / PAIN Source of Information: Patient, Family Exam Limitations: No Limitations History of Present Illness Date Seen by Provider: Apr 23, 2021 Time Seen by Provider: 12:32 Initial Comments To ER by private vehicle with reports of severe mid back pain. This began last night at around 2 AM. She had had 2 beers and was doing a hand stand. She states the next thing she knew she was lying on her back with severe pain in the mid back. She was able to go to bed, this was painful with movement. She awakened this morning with increasing pain. No loss of bowel or bladder control and no numbness of genitals. She denies any numbness or tingling or weakness in her arms or legs. She denies headache or neck pain. She states that the pain does seem to start in the mid back and radiate around to the anterior abdomen. She is otherwise healthy and takes no medications. Location: Lumbar Spine, Paraspinous Muscles, T-Spine Timing/Duration: 12-24 Hours Severity: Severe Pain/Injury Location: Back Method of Injury: Unknown Allergies and Home Medications Allergies Coded Allergies: Penicillins (Unverified Allergy, Unknown, 02/11/19) Patient Home Medication List Home Medication List Reviewed: Yes Clindamycin HCl (Clindamycin HCl) 300 Mg Capsule, 300 MG PO Q6H Prescribed by: KATINA PINK on 02/13/19 1352 Ferrous Sulfate (Ferrous Sulfate) 325 Mg Tablet, 325 MG PO DAILY@0700 Prescribed by: JESSICA SOTOMAYOR on 02/04/191944 Ibuprofen (Advil) 200 Mg Tablet, 400-800 MG PO TID PRN for PAIN-MILD (1-4), (R eported) Entered as Reported by: NAVIN PASTOR on 02/11/19 0911 Oxycodone HCl/Acetaminophen (Percocet 5-325 mg Tablet) 1 Each Tablet, 1 TAB PO Q6HR PRN for PAIN-MODERATE (5-7) Prescribed by: JESSICA SOTOMAYOR on 02/04/191944 Review of Systems Constitutional: see HPI EENTM: see HPI Respiratory: no symptoms reported Cardiovascular: no symptoms reported Genitourinary: no symptoms reported Musculoskeletal: see HPI, back pain Skin: no symptoms reported Psychiatric/Neurological: No Symptoms Reported Past Oyrtjwy-Vvfkjv-Rdbhxr Hx Past Medical History Surgeries: Yes (UMBIL HERNIA, D&C) Abdominal, Orthopedic Respiratory: No Cardiac: No Neurological: No Reproductive Disorders: Yes Female Reproductive Disorders: Polycystic Ovarian Dis Genitourinary: No Gastrointestinal: No Musculoskeletal: No Endocrine: No HEENT: No Cancer: No Psychosocial: Yes Anxiety, Depression Integumentary: No Blood Disorders: No Family Medical History No Pertinent Family Hx Physical Exam Vital Signs Vital Signs - First Documented 04/23/21 12:25 Temp 36.6 Pulse 73 Resp 17 B/P (MAP) 124/84 (97) Pulse Ox 100 O2 Delivery Room Air Capillary Refill : Height, Weight, BMI Height: 5'7.00" Weight: 145lbs. 0.0oz. 65.700457as; 22.66 BMI Method:Stated General Appearance: No Apparent Distress, WD/WN, Thin, Other (And oriented GCS 15 very pleasant. She was in the backseat of a vehicle on arrival. We went to the vehicle placed a rigid cervical collar and then loaded her onto a backboard while in the backseat laying on her back. We then slid the backboard out onto the stretcher. Unclear how she got into the vehicle.) HEENT: PERRL/EOMI, TMs Normal Neck: Full Range of Motion, Normal Inspection Cardiovascular: Regular Rate, Rhythm, Normal Peripheral Pulses Respiratory: Normal Breath Sounds, No Accessory Muscle Use, No Respiratory Distress Gastrointestinal: Normal Bowel Sounds, Non Tender, Soft Back: Normal Inspection, Other (She was logrolled while maintaining C-spine precautions. There was tenderness to palpation of the lower thoracic/upper lumbar spinous processes. No ecchymoses no erythema. Moves all extremities.) Extremity: Normal Capillary Refill, Normal Inspection Neurologic/Psychiatric: Alert, Oriented x3 Skin: Normal Color, Warm/Dry Progress/Results/Core Measures Results/Orders Lab Results Laboratory Tests Test 04/23/21 12:45 04/23/21 13:52 Range/Units Sodium Level 141 135-145 MMOL/L Potassium Level 3.6 3.6-5.0 MMOL/L Chloride Level 109 H 98-107 MMOL/L Carbon Dioxide Level 20 L 21-32 MMOL/L Anion Gap 12 5-14 MMOL/L Blood Urea Nitrogen 9 7-18 MG/DL Creatinine 0.66 0.60-1.30 MG/DL Estimat Glomerular Filtration Rate 124 BUN/Creatinine Ratio 14 Glucose Level 84 70-105 MG/DL Calcium Level 9.4 8.5-10.1 MG/DL Corrected Calcium 9.2 8.5-10.1 MG/DL Total Bilirubin 0.7 0.1-1.0 MG/DL Aspartate Amino Transf (AST/SGOT) 22 5-34 U/L Alanine Aminotransferase (ALT/SGPT) 19 0-55 U/L Alkaline Phosphatase 41 40-136 U/L Total Protein 6.7 6.4-8.2 GM/DL Albumin 4.2 3.2-4.5 GM/DL Serum Test, Qualitative NEGATIVE NEGATIVE White Blood Count 8.5 4.3-11.0 10^3/uL Red Blood Count 4.19 3.80-5.11 10^6/uL Hemoglobin 13.2 11.5-16.0 g/dL Hematocrit 39 35-52 % Mean Corpuscular Volume 92 80-99 fL Mean Corpuscular Hemoglobin 32 25-34 pg Mean Corpuscular Hemoglobin Concent 34 32-36 g/dL Red Cell Distribution Width 13.4 10.0-14.5 % Platelet Count 167 130-400 10^3/uL Mean Platelet Volume 12.6 H 9.0-12.2 fL Immature Granulocyte % (Auto) 1 % Neutrophils (%) (Auto) 73 42-75 % Lymphocytes (%) (Auto) 18 12-44 % Monocytes (%) (Auto) 7 0-12 % Eosinophils (%) (Auto) 2 0-10 % Basophils (%) (Auto) 1 0-10 % Neutrophils # (Auto) 6.2 1.8-7.8 10^3/uL Lymphocytes # (Auto) 1.5 1.0-4.0 10^3/uL Monocytes # (Auto) 0.6 0.0-1.0 10^3/uL Eosinophils # (Auto) 0.1 0.0-0.3 10^3/uL Basophils # (Auto) 0.1 0.0-0.1 10^3/uL Immature Granulocyte # (Auto) 0.0 0.0-0.1 10^3/uL My Orders Orders - ARTHUR MEHTA COMPLIANCE CONSULTANT Cbc With Automated Diff (04/23/21 12:30) Comprehensive Metabolic Panel (04/23/21 12:30) Ua Culture If Indicated (3/8/22 12:30) Hcg,Qualitative Serum (04/23/21 12:30) Ed Iv/Invasive Line Start (04/23/21 12:30) Ct Head/Cervical Spine Wo (04/23/21 12:30) Ct Thoracic/Lumbar Spine Wo (04/23/21 12:30) Ketorolac Injection (Toradol Injection) (04/23/21 12:30) Fentanyl Inj (Sublimaze Injection) (04/23/21 12:30) Medications Given in ED Current Medications Medications Dose Ordered Sig/Maura Route Start Time Stop Time Status Last Admin Dose Admin Ketorolac Tromethamine 15 mg ONCE ONCE IVP 04/23/21 12:30 04/23/21 12:32 DC 04/23/21 12:48 15 MG Vital Signs/I&O 04/23/21 12:25 Temp 36.6 Pulse 73 Resp 17 B/P (MAP) 124/84 (97) Pulse Ox 100 O2 Delivery Room Air Departure Communication (Admissions) [facility] [place], [place] NAME: TRISTAN CROWLEY Ladonna [facility] REC#: [id number] PT STATUS: REG ER : 1995 PHYSICIAN: ARTHUR MEHTA APRN ADMIT DATE: 04/23/21/ER Signed Date of Exam:04/23/21 CT HEAD/CERVICAL SPINE WO PROCEDURE: CT head and CT cervical spine without contrast. TECHNIQUE: Multiple contiguous axial images were obtained through the brain and cervical spine without the use of intravenous contrast. Sagittal and coronal reformations through the cervical spine were then performed. Auto Exposure Controls were utilized during the CT exam to meet ALARA standards for radiation dose reduction. INDICATION: Head and neck injury from fall. COMPARISON: None available. FINDINGS: Head: No hyperdense hemorrhage or space-occupying mass. No hydrocephalus or midline shift. No evidence of territorial infarct. Basilar cisterns are patent. No focal scalp swelling. No skull fracture. The paranasal sinuses and mastoid air cells are clear. Cervical spine: No acute fracture or traumatic malalignment. Congenital incomplete fusion of the posterior arch of C1. No high-grade spinal canal narrowing. Airway is patent. No cervical lymphadenopathy. Visualized thyroid is normal. IMPRESSION: 1. No acute intracranial process or skull fracture. 2. No acute fracture or traumatic malalignment of the cervical spine. Dictated by: Dictated on workstation # [id number] Dict: 04/23/218 Trans: 04/23/21 1325 [facility] [id number] Interpreted by: TWAN PALOMINO MD Electronically signed by: TWAN PALOMINO MD 04/23/21 1325 NAME: TRISTAN CROWLEY [facility] REC#: [id number] PT STATUS: REG ER : 1995 PHYSICIAN: ARTHUR MEHTA APRN ADMIT DATE: 04/23/21/ER Draft Date of Exam:04/23/21 CT THORACIC/LUMBAR SPINE WO PROCEDURE: CT thoracic and lumbar spine without contrast. TECHNIQUE: Multiple contiguous axial images were obtained through the thoracic and lumbar spine without the use of intravenous contrast. Sagittal and coronal reformations were then performed. All CT scans use one or more of the following dose optimizing techniques: automated exposure control, MA and/or KvP adjustment based on a patient size and exam type, or iterative reconstruction. INDICATION: Trauma, back pain, fall. COMPARISON: None. FINDINGS: There is minimal height loss involving the superior endplate of T12, compatible with a compression fracture. There is no significant retropulsion or central canal stenosis. There is no soft tissue hematoma. The remainder of the thoracolumbar spine is unremarkable. The posterior elements are intact. Paraspinous soft tissues and central canal are normal. IMPRESSION: Traumatic T12 superior endplate compression fracture. No significant retropulsion or disruption of the posterior elements is present. Dictated on workstation # [id number] Dict: 04/23/215 Trans: 04/23/21 1332 [id number] Interpreted by: TETE GUTIERREZ Electronically signed by: Impression Primary Impression: T12 compression fracture Disposition: 01 HOME, SELF-CARE Condition: Stable Departure-Patient Inst. Decision time for Depature: 13:51 Referrals: [facility] (PCP/Family) Primary Care Physician Patient Instructions: Vertebral Compression Fracture Add. Discharge Instructions: 1. Return to ER for any concerns 2. Medication as directed. Take tylenol and/or motrin for pain in addition to the prescribed pain medication as needed. It can be constipating if taken regularly so increasing water intake and adding a stool softener would be a good idea. Follow up with Primary care in 1-2 weeks and return to ER for any concerns. All discharge instructions reviewed with patient and/or family. Voiced understanding. Scripts Hydrocodone/Acetaminophen (Hydrocodone-Acetamin 5-325 mg) 1 Each Tablet 1 TAB PO Q4H PRN for PAIN-MODERATE (5-7), #20 TAB Prov: ARTHUR MEHTA APRN 04/23/21 Work/School Note: Work Release Form Date Seen in the Emergency Department: Apr 23, 2021 Return to Work: May 02, 2021 ARTHUR MEHTA APRN Apr 23, 2021 12:36
[2021-04-23 13:26] LABS: ALBUMIN 4.2 GM/DL (3.2-4.5); POTASSIUM 3.6 MMOL/L (3.6-5.0)
--- NOTE | 2021-04-23 13:26 | Diagnostic Imaging Report ---
PROCEDURE: CT head and CT cervical spine without contrast. TECHNIQUE: Multiple contiguous axial images were obtained through the brain and cervical spine without the use of intravenous contrast. Sagittal and coronal reformations through the cervical spine were then performed. Auto Exposure Controls were utilized during the CT exam to meet ALARA standards for radiation dose reduction. INDICATION: Head and neck injury from fall. COMPARISON: None available. FINDINGS: Head: No hyperdense hemorrhage or space-occupying mass. No hydrocephalus or midline shift. No evidence of territorial infarct. Basilar cisterns are patent. No focal scalp swelling. No skull fracture. The paranasal sinuses and mastoid air cells are clear. Cervical spine: No acute fracture or traumatic malalignment. Congenital incomplete fusion of the posterior arch of C1. No high-grade spinal canal narrowing. Airway is patent. No cervical lymphadenopathy. Visualized thyroid is normal. IMPRESSION: 1. No acute intracranial process or skull fracture. 2. No acute fracture or traumatic malalignment of the cervical spine. Dictated by: Dictated on workstation # [id number]
[2021-04-23 13:27] LABS: CALCIUM 9.4 MG/DL (8.5-10.1)
[2021-04-23 13:29] LABS: TOTAL PROTEIN 6.7 GM/DL (6.4-8.2)
[2021-04-23 13:30] LABS: BILIRUBIN,TOTAL 0.7 MG/DL (0.1-1.0)
[2021-04-23 13:32] LABS: CREATININE SERUM 0.66 MG/DL (0.60-1.30)
--- NOTE | 2021-04-23 13:32 | Diagnostic Imaging Report ---
PROCEDURE: CT thoracic and lumbar spine without contrast. TECHNIQUE: Multiple contiguous axial images were obtained through the thoracic and lumbar spine without the use of intravenous contrast. Sagittal and coronal reformations were then performed. All CT scans use one or more of the following dose optimizing techniques: automated exposure control, MA and/or KvP adjustment based on a patient size and exam type, or iterative reconstruction. INDICATION: Trauma, back pain, fall. COMPARISON: None. FINDINGS: There is minimal height loss involving the superior endplate of T12, compatible with a compression fracture. There is no significant retropulsion or central canal stenosis. There is no soft tissue hematoma. The remainder of the thoracolumbar spine is unremarkable. The posterior elements are intact. Paraspinous soft tissues and central canal are normal. IMPRESSION: Traumatic T12 superior endplate compression fracture. No significant retropulsion or disruption of the posterior elements is present. Dictated by: Dictated on workstation # [id number]
[2021-04-23 13:55] LABS: BASOPHILS # (AUTO) 0.1 10^3/uL (0.0-0.1); BASOPHILS % (AUTO) 1 % (0-10); EOSINOPHILS # (AUTO) 0.1 10^3/uL (0.0-0.3); EOSINOPHILS % (AUTO) 2 % (0-10); HEMATOCRIT 39 % (35-52); HEMOGLOBIN 13.2 g/dL (11.5-16.0); LYMPHOCYTES # (AUTO) 1.5 10^3/uL (1.0-4.0); LYMPHOCYTES % (AUTO) 18 % (12-44); MEAN CORPUSCULAR HEMOGLOBIN 32 pg (25-34); MEAN CORPUSCULAR HGB CONC 34 g/dL (32-36); MEAN CORPUSCULAR VOLUME 92 fL (80-99); MEAN PLATELET VOLUME 12.6 fL (9.0-12.2); MONOCYTES # (AUTO) 0.6 10^3/uL (0.0-1.0); MONOCYTES % (AUTO) 7 % (0-12); NEUTROPHILS # (AUTO) 6.2 10^3/uL (1.8-7.8); NEUTROPHILS % (AUTO) 73 % (42-75); PLATELET COUNT 167 10^3/uL (130-400); WHITE BLOOD COUNT 8.5 10^3/uL (4.3-11.0)
[2021-04-23] MEDS ORDERED: ACHD5005 PO (14:07)
[2021-04-23 14:22] VITALS: BP 108/68
== END 2021-04-23 14:26 | disposition home or self-care (01) ==
LOC: EDUNIT# 12:20 → ER 12:22
DX: S22.080A Wedge compression fracture of T11-T12 vertebra, initial encounter for closed fracture (principal); X50.1XXA Overexertion from prolonged static or awkward postures, initial encounter
CPT/HCPCS: 36415; 70450; 72125; 72128; 72131; 80053; 84703; 85025

== ENCOUNTER → 2022-06-26 | Outpatient (CLI) | payer OTHER ==
--- NOTE | 2022-06-26 15:40 | Diagnostic Imaging Report ---
INDICATION: survey. TECHNIQUE: Multiple real-time grayscale images were obtained over the gravid uterus. COMPARISON: None FINDINGS: There is a single live fetus in a variable presentation. heart rate was recorded at 143 bpm. Placenta is posterior. No previa is identified. Amniotic fluid volume is normal at 12.6 cm. Cervical length is 4.8 cm. kidneys, bladder and stomach are unremarkable. brains is unremarkable. There is a four-chamber heart. There is a three-vessel cord with normal insertion. spine is unremarkable. Biometrical measurements are as follows: Biparietal 4.68 cm, age 20 weeks 2 days. Head circumference 17.70 cm, age 20 weeks 2 days. Abdominal circumference 14.82 cm, age 20 weeks 1 days. Femur length 3.34 cm, age 20 weeks 4 days. Sonographic estimate age: 20 weeks 3 days. Sonographic estimated date of delivery: 11/10/2022. Estimated Weight: 342 gm (+/- 50 gm). LMP percentile: 60%. heart rate: 143 beats per minute. number: 1 of 1. IMPRESSION: Single live IUP 20 weeks 3 days gestational age. Estimated date of confinement sonographically is 11/10/2022. Dictated by: Dictated on workstation # [id number]
== END ==
LOC: RAD 13:00
PROVIDERS: ATTEND Nurse Practitioner Women's Health
DX: Z34.02 Encounter for supervision of normal first pregnancy, second trimester (principal); Z3A.20 20 weeks gestation of pregnancy
CPT/HCPCS: 76805

== ENCOUNTER 2022-07-25 22:11 | Emergency (ER) | payer MEDICAID, OTHER ==
[~2022-07-25] VITALS: Ht 172.7 cm; Wt 89.0 kg
[2022-07-25 22:58] VITALS: BP 153/86
--- NOTE | 2022-07-25 23:15 | ED Integumentary General ---
General Chief Complaint: Bite-Animal/Human/Insect Stated Complaint: POSS SPIDER BITE 24 WKS PREG Nursing Triage Note: PT PRESENTS WITH C/O POSSIBLE SPIDER BITE TO L BREAST. PT REPORTS WOUND WITH BLISTER LAST NIGHT THAT APPEARS POPPED TODAY AND HAS REDNESS AROUND IT TO L BREAST. SHE STATES SHE KILLED 2 BROWN RECLUSE SPIDERS IN HER BATHROOM YESTERDAY. Source: patient Exam Limitations: no limitations History of Present Illness Date Seen by Provider: Jul 25, 2022 Time Seen by Provider: 23:04 Initial Comments 27-year-old female presents to the ER with concerns of a skin issue to her left breast. She thinks its possible she was bit by a brown recluse. States she has seen a couple in her house over the last couple days. She states that she first noticed a blister on her left breast last night that has opened today. She is 24 weeks 1 day . Denies any issues with . Denies fevers. Does report that today she has felt tired and has had a headache. Denies pulling a tick off of this area. Allergies and Home Medications Allergies Coded Allergies: Penicillins (Unverified Allergy, Unknown, 02/11/19) Patient Home Medication List Home Medication List Reviewed: Yes Clindamycin HCl (Clindamycin HCl) 300 Mg Capsule, 300 MG PO Q6H Prescribed by: KATINA PINK on 02/13/19 1352 Ferrous Sulfate (Ferrous Sulfate) 325 Mg Tablet, 325 MG PO DAILY@0700 Prescribed by: JESSICA SOTOMAYOR on 02/04/191944 Hydrocodone/Acetaminophen (Hydrocodone-Acetamin 5-325 mg) 1 Each Tablet, 1 TAB PO Q4H PRN for PAIN-MODERATE (5-7) Prescribed by: ARTHUR MEHTA on 04/23/21 1408 Ibuprofen (Advil) 200 Mg Tablet, 400-800 MG PO TID PRN for PAIN-MILD (1-4), (Reported) Entered as Reported by: NAVIN PASTOR on 02/11/19 0911 Oxycodone HCl/Acetaminophen (Percocet 5-325 mg Tablet) 1 Each Tablet, 1 TAB PO Q6HR PRN for PAIN-MODERATE (5-7) Prescribed by: JESSICA SOTOMAYOR on 02/04/191944 Review of Systems Review of Systems Constitutional: no symptoms reported Expected Date of Delivery: Nov 13, 2022 Skin: other (Wound to left breast) Past Refbwnj-Clrquc-Jotkjv Hx Past Medical History Surgery/Hospitalization HX: PCOS Surgeries: Yes (UMBIL HERNIA, D&C) Abdominal, Orthopedic Respiratory: No Cardiac: No Neurological: No Expected Date of Delivery: Nov 13, 2022 Last Menstrual Period: Feb 06, 2022 Reproductive Disorders: Yes Female Reproductive Disorders: Polycystic Ovarian Dis Genitourinary: No Gastrointestinal: No Musculoskeletal: No Endocrine: No HEENT: No Cancer: No Psychosocial: Yes Anxiety, Depression Integumentary: No Blood Disorders: No Family Medical History No Pertinent Family Hx Physical Exam Vital Signs Vital Signs - First Documented 07/25/22 22:58 Temp 36.7 Pulse 91 Resp 16 B/P (MAP) 153/86 (108) Capillary Refill : Less Than 3 Seconds General Appearance: WD/WN, no apparent distress Neck: supple, normal inspection Cardiovascular: regular rate, rhythm Respiratory: lungs clear, normal breath sounds, no respiratory distress, no accessory muscle use Extremities: normal range of motion, normal inspection Neurologic/Psychiatric: alert, normal mood/affect Skin: normal color, warm/dry Skin Problem Location: other (Left breast) Skin Problem Character: other (Small area where the top layer of skin is gone like an opened blister, no area of erythema, induration, or fluctuation) Progress/Results/Core Measures Results/Orders Vital Signs/I&O 07/25/22 22:58 Temp 36.7 Pulse 91 Resp 16 B/P (MAP) 153/86 (108) Blood Pressure Mean: 108 Progress Progress Note : Progress Note Patient seen and evaluated, resting comfortably in recliner, no acute distress. Wound does not appear infected at this time. No need for antibiotics at this time. Patient given directions to follow-up with primary care provider if wound continues or gets worse. Discharge instructions and return precautions provided. Departure Impression Primary Impression: Spider bite wound Qualified Codes: T63.301A - Toxic effect of unspecified spider venom, accidental (unintentional), initial encounter Disposition: 01 HOME, SELF-CARE Condition: Stable Departure-Patient Inst. Decision time for Depature: 23:14 Referrals: [facility] (PCP/Family) Primary Care Physician Patient Instructions: Insect Bites and Stings (DC) Add. Discharge Instructions: Monitor for signs of infection including redness, swelling, discolored odorous drainage. Return or see your primary for signs of infection. Return for any new, concerning, or worsening symptoms. All discharge instructions reviewed with patient and/or family. Voiced un derstanding. GAIL POLANCO MOLDER MACHINE Jul 25, 2022 23:15
== END 2022-07-25 23:21 | disposition home or self-care (01) ==
LOC: EDUNIT# 22:11 → ER 22:14
DX: O9A.212 Injury, poisoning and certain other consequences of external causes complicating pregnancy, second trimester (principal); T63.301A Toxic effect of unspecified spider venom, accidental (unintentional), initial encounter; Z28.310 Unvaccinated for COVID-19; Z3A.24 24 weeks gestation of pregnancy
CPT/HCPCS: 99281

== ENCOUNTER → 2022-08-18 | Outpatient (REF) | payer MEDICAID ==
[~2022-08-18] MED LIST changes: +PREN-142 PO
== END ==
LOC: LABNPT 15:08
PROVIDERS: ATTEND Nurse Practitioner Women's Health
DX: O13.9 Gestational [pregnancy-induced] hypertension without significant proteinuria, unspecified trimester (principal)

== ENCOUNTER → 2022-08-18 | Outpatient (CLI) | payer MEDICAID ==
[~2022-08-18] MED LIST changes: -PREN-142 PO
[2022-08-18 16:26] LABS: URINE CREATININE FOR RATIO 9 MG/DL (30-125)
[2022-08-18 16:27] LABS: URINE PROTEIN FOR RATIO ONLY < 6 MG/DL (6-12)
== END ==
LOC: LABNPT 15:08
PROVIDERS: ATTEND Nurse Practitioner Women's Health
DX: O13.9 Gestational [pregnancy-induced] hypertension without significant proteinuria, unspecified trimester (principal); Z3A.00 Weeks of gestation of pregnancy not specified
CPT/HCPCS: 82570; 84156

== ENCOUNTER 2022-09-03 18:18 | Outpatient (CLI) | payer MEDICAID ==
[~2022-09-03] VITALS: Ht 172.7 cm; Wt 96.6 kg
[2022-09-03 18:42] VITALS: BP 126/81
--- NOTE | 2022-09-03 18:52 | OB Triage Report ---
Standard Progress Note Progress Notes/Assess & Plan Date Seen by a Provider: Sep 03, 2022 Time Seen by a Provider: 08:48 Expected Date of Delivery: Nov 13, 2022 Gestational Age in Weeks: 29 Gestational Age in Days: 6 LMP/CINDY Comment: IUP@ 29w6d Progress/Assessment & Plan This G1 presents to L&D @ 29w6d with c/o spotting & decreased movement. She denies LOF or CTXs. 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 She states that she started having spotting today and was concerned. FHT 150 TOCOs none spotting no active VB Diagnosis/Problems Diagnosis/Problems (1) SPOTTING AT 29 6/7 WEEKS Assessment & Plan: DC to home Keep next appt Precautions d/w pt OLVIN CAAB DO Sep 03, 2022 18:52
[2022-09-03 19:05] VITALS: BP 126/81
[2022-09-03 19:17] LABS: BILIRUBIN,URINE NEGATIVE (NEGATIVE); CLARITY,URINE CLEAR; COLOR,URINE YELLOW; GLUCOSE, URINE (UA) NEGATIVE (NEGATIVE); KETONES,URINE NEGATIVE (NEGATIVE); LEUKOCYTE ESTERASE ,URINE NEGATIVE (NEGATIVE); NITRITE,URINE NEGATIVE (NEGATIVE); PROTEIN,URINE NEGATIVE (NEGATIVE)
[2022-09-03 19:30] LABS: AMORPHOUS SEDIMENT,UR FEW AMOR URATES /LPF; BACTERIA,URINE TRACE /HPF; SQUAMOUS EPITHELIAL CELL,UR 0-2 /HPF
[2022-09-03] MEDS ORDERED: PREN-142 PO (20:12)
== END 2022-09-03 20:22 | disposition home or self-care (01) ==
LOC: LDRP 18:18 → WSo 18:18
PROVIDERS: ATTEND Obstetrics & Gynecology
DX: O20.9 Hemorrhage in early pregnancy, unspecified (principal); Z3A.00 Weeks of gestation of pregnancy not specified
CPT/HCPCS: 81000; 99213

== ENCOUNTER 2022-09-23 16:28 | Outpatient (CLI) | payer MEDICAID ==
[~2022-09-23] VITALS: Ht 172.7 cm; Wt 99.2 kg
[~2022-09-23 16:28] MED LIST changes: +PREN-142 PO
[2022-09-23 16:39] VITALS: BP 138/87
--- NOTE | 2022-09-24 08:31 | Physician Query-Final Dx ---
Clinic Account Progress/Dx Physician Query: Please give diagnosis Please include # weeks gestation Date of Service Sep 23, 2022 at 16:28 JAMES,FebSep 24, 2022 08:31
== END 2022-09-23 17:25 | disposition home or self-care (01) ==
LOC: WSo 16:28 → LDRP 16:29 → WSo 17:25
PROVIDERS: ATTEND Obstetrics & Gynecology
DX: O36.8190 Decreased fetal movements, unspecified trimester, not applicable or unspecified (principal); Z3A.00 Weeks of gestation of pregnancy not specified
CPT/HCPCS: 99213

== ENCOUNTER → 2022-09-29 | Outpatient (CLI) | payer MEDICAID | LOC: LABNPT 11:07 | PROVIDERS: ATTEND Nurse Practitioner Women's Health | DX: O13.9 Gestational [pregnancy-induced] hypertension without significant proteinuria, unspecified trimester (principal); Z3A.00 Weeks of gestation of pregnancy not specified | CPT/HCPCS: 82570; 84156 ==

== ENCOUNTER → 2022-10-13 | Outpatient (CLI) | payer MEDICAID | LOC: LABNPT 12:20 | PROVIDERS: ATTEND Nurse Practitioner Women's Health | DX: O13.9 Gestational [pregnancy-induced] hypertension without significant proteinuria, unspecified trimester (principal); Z3A.00 Weeks of gestation of pregnancy not specified | CPT/HCPCS: 82570; 84156 ==

== ENCOUNTER 2022-10-29 15:49 | Outpatient (CLI) | payer MEDICAID ==
[2022-10-29] VITALS (8 sets, daily range): BP systolic 121–136; BP diastolic 75–85
[~2022-10-29] VITALS: Ht 172.8 cm; Wt 105.3 kg
[2022-10-29 16:49] LABS: BACTERIA,URINE MODERATE /HPF; BILIRUBIN,URINE NEGATIVE (NEGATIVE); CLARITY,URINE CLEAR; COLOR,URINE YELLOW; GLUCOSE, URINE (UA) NEGATIVE (NEGATIVE); KETONES,URINE NEGATIVE (NEGATIVE); LEUKOCYTE ESTERASE ,URINE TRACE (NEGATIVE); NITRITE,URINE NEGATIVE (NEGATIVE); PH,URINE 7.5 (5-9); PROTEIN,URINE NEGATIVE (NEGATIVE)
== END 2022-10-29 18:25 | disposition home or self-care (01) ==
LOC: WSo 15:49 → LDRP 15:53 → WSo 18:25
PROVIDERS: ATTEND Obstetrics & Gynecology
DX: O99.891 Other specified diseases and conditions complicating pregnancy (principal); Z3A.37 37 weeks gestation of pregnancy
CPT/HCPCS: 81000; 87088; 99214